=== PATIENT | female | born 1965 | race African-American/Black ===

== ENCOUNTER 2016-12-28 18:47 | Emergency (ER) | payer OTHER ==
[2016-12-28 19:12] VITALS: BP 154/80; PULSE 86; TEMP 98.1; BMI 29.5
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
[2016-12-28] MEDS ORDERED: diazePAM 2 MG TABLET PO ONE (20:15)
[2016-12-28] MEDS ORDERED: KETOROLAC TROMETHAMINE 30 MG/1 ML VIAL IM ONE (20:15)
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
[2016-12-28] MEDS ORDERED: diazePAM 2 MG TABLET ONE (20:36)
[2016-12-28] MEDS ORDERED: KETOROLAC TROMETHAMINE 30 MG/1 ML VIAL ONE (20:36)
== END 2016-12-28 22:00 | disposition home or self-care (01) ==
LOC: JERFT 18:47
PROC: 3E0233Z Introduction of Anti-inflammatory into Muscle, Percutaneous Approach (ICD-10-PCS; principal; 2016-12-28)
DX: M54.2 Cervicalgia (principal); V43.52XA Car driver injured in collision with other type car in traffic accident, initial encounter; Y93.89 Activity, other specified; Y92.410 Unspecified street and highway as the place of occurrence of the external cause; I10 Essential (primary) hypertension; D64.9 Anemia, unspecified; E78.00 Pure hypercholesterolemia, unspecified; F41.9 Anxiety disorder, unspecified
CPT/HCPCS: 72125-TC; 84703; 99281-25

== ENCOUNTER 2017-01-19 15:09 | Emergency (ER) | payer OTHER ==
[2017-01-19 15:21] VITALS: BP 153/91; PULSE 73; TEMP 97.3; BMI 29.5
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
[2017-01-19] MEDS ORDERED: diazePAM 2 MG TABLET ONE (16:31)
[2017-01-19] MEDS ORDERED: KETOROLAC TROMETHAMINE 60 MG/2 ML VIAL ONE (16:31)
[2017-01-19] MEDS: diazePAM 2 MG TABLET PO ONE (16:38)
[2017-01-19] MEDS: KETOROLAC TROMETHAMINE 60 MG/2 ML VIAL IM ONE (16:38)
== END 2017-01-19 18:33 | disposition home or self-care (01) ==
LOC: JERFT 15:09
PROC: 3E0233Z Introduction of Anti-inflammatory into Muscle, Percutaneous Approach (ICD-10-PCS; principal; 2017-01-19)
DX: M62.830 Muscle spasm of back (principal); M54.5 Low back pain; V43.52XA Car driver injured in collision with other type car in traffic accident, initial encounter; Y92.414 Local residential or business street as the place of occurrence of the external cause; Y93.89 Activity, other specified; Y99.8 Other external cause status; I10 Essential (primary) hypertension; E78.00 Pure hypercholesterolemia, unspecified; F41.9 Anxiety disorder, unspecified; Z87.442 Personal history of urinary calculi
CPT/HCPCS: 72131-TC; 99281-25

== ENCOUNTER 2017-02-15 05:04 | Day surgery (SDC) | payer OTHER ==
[2017-02-09 15:05] VITALS: BMI 29.5
--- NOTE | 2017-02-14 12:19 | HP ---
[facility] - Chief Complaint Chief Complaint: Heavy vaginal bleeding with the presence of fibroids and endometrial polyps. History of Present Illness: Pt has been experiencing heavy vaginal bleeding for months. A sonogram revealed the presence of fibroids in the uterus along with endometrial polyps. 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: Alzheimer's, CVA, Dementia, Migraine, Multiple Sclerosis, Peripheral Neuropathy, Parkinson's, Seizure, Syncope, TIA, Vertigo, Other Cardiovascular: No: AFIB, Aneurysm, Aortic Insufficiency, Aortic Stenosis, CAD, CHF, Deep Vein Thrombosis, HTN, Hyperlipdemia, WI, Mitral Insufficiency, Mitral Stenosis, Murmur, Pulmonary Hypertension, Other Pulmonary: No: Asthma, Bronchitis, Cancer, COPD, O2 Dependent, Pneumonia, Previously Intubated, Pulmonary Embolus, Pulmonary Fibrosis, Sleep Apnea, Other Gastrointestinal: Yes: GERD Hepatobiliary: No: Cirrhosis, Cholelithiasis, Cholecystitis, Choledocholithiasis , Hepatitis A, Hepatitis B, Hepatitis C, Other Renal/: No: Renal Failure, Renal Inusuff, BPH, Cancer, Hematuria, Hemodialysis , Neurogenic Bladder, Renal Calculi, UTI, Other Reproductive: Yes: Fibroids ...LMP: 01/14/17 ...: 3 ...Para: 3 Heme/Onc: No: Anemia, B12 Deficiency, Bleeding Disorder, Cancer, Current Chemotherapy, Current Radiation Therapy, Hemochromatosis, Hypercoaguable State, Myeloproliferative Synd, Sickle Cell Disease, Sickle Cell Trait, Thrombocytopenia, Other Infectious Disease: No: AIDS, C-Diff, Herpes Zoster, HIV, MRSA, STD's, Tuberculosis, VREF, Other Musculoskeletal: No: Bursitis, Chronic low back pain, Hemiparesis, Hemiplegia, Osteoarthritis, Paraplegia, Other Rheumatology: No: Fibromyalgia, Gout, Lupus, Rheumatoid Arthritis, Sarcoidosis, Vasculitis, Other ENT: No: Allergic Rhinitis, Sinusitis, Other Endocrine: No: Beaufort's Disease, Justino's Disease, Diabetes Insipidus, Diabetes Mellitus, Hyperparathyroidism, Hyperthyroidism, Hypothyroidism, Osteopenia, SIADH, Other Dermatology: No: Basal Cell, Cellulitis, Eczema, Melanoma, Psoriasis, Squamous Cell, Other - Current Medications Current Medications: Home Medications Medication Instructions Recorded Cyclobenzaprine HCl [Flexeril -] 10 mg PO TID PRN #21 tablet 02/21/16 Oxycodone HCl/Acetaminophen 1 - 2 tab PO Q6H #14 tab MDD 6 02/21/16 [Percocet 5-325 mg Tablet] Doxycycline Hyclate 100 mg PO DAILY 10/01/16 Metoprolol Succinate [Toprol Xl] 100 mg PO DAILY 10/01/16 Naproxen [Naprosyn -] 500 mg PO BID #14 tablet 12/28/16 Satellite Physical Exam - Physical Examination General Appearance: Well Nourished, Well Developed, Alert & Oriented x3 ENT: Clear, No Discharge, No masses Lung: Clear to auscultation Heart: Regular rate & rhythm, Normal S1, Normal S2 Breasts: Soft, Non-Tender, No masses bilaterally Abdomen: Soft, No tenderness, No CVA Extremities: No edema, No tenderness/swelling Pelvic Exam: Within normal limits External Genitalia, Within normal limits Vagina, Within normal limits Cervix, Within normal limits Uterus (fibroids), Within normal limits [facility]: Intact, Alert, Oriented Satellite Impression/Plan - Impression/Plan Impression: menorrhagia, endometrial polyp and fibroid uterus Operative Procedure: hysteroscopy with polypectomy and D/C Date to be Performed: 02/15/17
[2017-02-15] MEDS ORDERED: MIDAZOLAM HCL 2 MG/2 ML SINGLE DOSE VIAL ONE (08:32)
[2017-02-15] MEDS ORDERED: LIDOCAINE HCL/PF 2% SDV 5ML VIAL ONE (08:33)
[2017-02-15] MEDS ORDERED: ONDANSETRON 4 MG/2 ML VIAL ONE (08:34)
[2017-02-15] MEDS ORDERED: KETOROLAC TROMETHAMINE 30 MG/1 ML VIAL ONE (08:34)
[2017-02-15] MEDS ORDERED: DEXAMETHASONE SOD PHOSPHATE 4 MG/1 ML VIAL ONE (08:34)
[2017-02-15] MEDS ORDERED: ceFAZolin SODIUM 1 GM VIAL ONE (09:04)
[2017-02-15] MEDS ORDERED: ceFAZolin SODIUM 1 GM VIAL IVPB ONE (09:04)
[2017-02-15] MEDS ORDERED: oxyCODONE HCL 5 MG TABLET PO PRN (09:55)
[2017-02-15] MEDS ORDERED: ACETAMINOPHEN 1000 MG/100 ML VIAL (NON FORMULARY) IVPB ONE (09:55)
[2017-02-15] MEDS ORDERED: PROMETHAZINE HCL 25 MG/1 ML VIAL IVPUSH PRN (09:55)
[2017-02-15] MEDS ORDERED: LACTATED RINGERS SOLUTION 1,000 ML IV SCH (10:00)
--- NOTE | 2017-02-15 10:28 | OP ---
DATE OF OPERATION: 02/15/2017 PREOPERATIVE DIAGNOSES: Menorrhagia, endometrial polyps, fibroid uterus. POSTOPERATIVE DIAGNOSES: Menorrhagia, endometrial polyps, fibroid uterus. OPERATIVE PROCEDURE: Hysteroscopy, dilatation and curettage, polypectomy. SURGEON: Yo Guillaume MD ANESTHESIA: MAC given by anesthesiologist. ESTIMATED BLOOD LOSS: 15 mL. The patient was brought to the operating room. Placed in the supine position. Given Ancef antibiotic prophylactically. Placed in a lithotomy position. The patient was examined. The uterus was noted to be anteverted, slightly enlarged. Adnexae negative. The anterior lip of the cervix was grasped with a tenaculum after the vagina was prepped and draped in the usual manner with Betadine. The uterus was sounded to 10 cm. The cervix was then dilated with Velez dilators. A hysteroscopy was performed. The patient was noted to have polypoid-appearing tissue in the fundal area of the uterus and old clots were also noted. A polypectomy was done. D & C was done. Tissue was abundant. There was lots of tissue that came out of the uterus along with old blood clots. The tissue may resemble myomatous tissue as well as endometrial polypoid tissue. The tissue was sent to Pathology for analysis. The hemostasis was good. The estimated blood loss was 15 mL. The patient tolerated procedure well. The speculum and the tenaculum were removed and the patient was transferred to the recovery room with stable vital signs and good hemostasis. YO GUILLAUME M.D. [id number]
[2017-02-15 10:53] VITALS: TEMP 98.2
[2017-02-15 17:21] VITALS: BP 120/78; PULSE 70
--- NOTE | 2017-02-16 12:52 | PATH ---
Surgical Pathology Report Patient Name: LATRICE LIVE [facility]. Rec. #: [id number] /Age/Gender: 1965 (Age: 51) / F Account: [id number] Location: [facility] SURGICAL Taken: 02/15/2017 Received: 02/15/2017 Reported: 02/16/2017 Physicians: Jim Guillaume M.D. Specimen(s) Received A: ENDOMETRIAL POLYPOPID TISSUE B: ENDOMETRIAL CURETTINGS Clinical History Perimenopausal menorrhagia, endometrial polyp, fibroids Final Diagnosis A. ENDOMETRIAL POLYPOID/MYOMATOUS TISSUE, POLYPECTOMY: FRAGMENTS OF ENDOMETRIAL POLYP WITH FOCAL STROMAL BREAKDOWN CHANGES. FRAGMENTS OF BENIGN SMOOTH MUSCLE WITH INTERVENING ENDOMETRIUM SUGGESTIVE OF ADENOMYOMA. SMALL FRAGMENTS OF BENIGN ENDOCERVICAL TISSUE. B. ENDOMETRIUM, CURETTAGE: FRAGMENTS OF ENDOMETRIAL POLYP. FRAGMENTS OF INACTIVE ENDOMETRIUM WITH STROMAL BREAKDOWN CHANGES. FRAGMENTS OF BENIGN SMOOTH MUSCLE WITH INTERVENING ENDOMETRIUM SUGGESTIVE OF ADENOMYOMA. FRAGMENTS OF BENIGN ENDOCERVICAL TISSUE. FRAGMENTS OF BENIGN SQUAMOUS EPITHELIUM. Electronically Signed Choco Rangel M.D. Gross Description A. Received in formalin labeled "endometrial polypoid tissue, possible myomatous tissue" is a 3.8 x 3.1 x 0.4 cm aggregate of fraga soft tissue fragments. The formalin is filtered and the specimen is entirely submitted in 2 cassettes. B. Received in formalin labeled "endometrial curettings" is a 6.4 x 6.0 x 0.8 cm aggregate of red-brown soft tissue fragments admixed with blood clot. The formalin is filtered and the specimen is entirely submitted in 8 cassettes. /02/15/2017 saudi02/15/2017
== END 2017-02-15 13:15 | disposition home or self-care (01) ==
LOC: JASU-SURG 05:04
PROVIDERS: ATTEND Obstetrics & Gynecology
PROC: 0UB98ZX Excision of Uterus, Via Natural or Artificial Opening Endoscopic, Diagnostic (ICD-10-PCS; principal; 2017-02-15 08:30)
PROC: 0UDB8ZX Extraction of Endometrium, Via Natural or Artificial Opening Endoscopic, Diagnostic (ICD-10-PCS; 2017-02-15 08:30)
DX: N92.0 Excessive and frequent menstruation with regular cycle (principal); N84.0 Polyp of corpus uteri; D25.9 Leiomyoma of uterus, unspecified
CPT/HCPCS: 84703; 88305-TC; 94760

== ENCOUNTER 2017-04-24 17:37 | Emergency (ER) | payer OTHER ==
[2017-04-24 17:46] VITALS: BP 164/96; PULSE 86; TEMP 97.9; BMI 29.5
[2017-04-24] MEDS ORDERED: diazePAM 5 MG TABLET PO ONE (18:55)
[2017-04-24] MEDS ORDERED: KETOROLAC TROMETHAMINE 30 MG/1 ML VIAL IM ONE (18:55)
[2017-04-24] MEDS ORDERED: diazePAM 5 MG TABLET ONE (18:58)
[2017-04-24] MEDS ORDERED: KETOROLAC TROMETHAMINE 30 MG/1 ML VIAL ONE (18:58)
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
[2017-04-24 19:51] LABS: URINE APPEARANCE CLEAR; URINE BILIRUBIN NEGATIVE (NEGATIVE); URINE COLOR STRAW; URINE GLUCOSE (UA) NEGATIVE (NEGATIVE); URINE KETONE NEGATIVE (NEGATIVE); URINE NITRITE NEGATIVE (NEGATIVE); URINE PROTEIN NEGATIVE (NEGATIVE); URINE UROBILINOGEN NEGATIVE mg/dL (0.2-1.0)
[2017-04-24 20:09] LABS: URINE BLOOD 1+ (NEGATIVE); URINE LEUK ESTERASE 3+ (NEGATIVE)
[2017-04-24 20:11] LABS: URINE MUCUS RARE; URINE RBC 13 /hpf (0-3); URINE WBC 29 /hpf (3-5)
== END 2017-04-24 20:18 | disposition home or self-care (01) ==
LOC: JERFT 17:37
PROC: 3E0233Z Introduction of Anti-inflammatory into Muscle, Percutaneous Approach (ICD-10-PCS; principal; 2017-04-24)
DX: M62.830 Muscle spasm of back (principal); I10 Essential (primary) hypertension; E78.00 Pure hypercholesterolemia, unspecified; F41.9 Anxiety disorder, unspecified
CPT/HCPCS: 81003; 81015; 96372; 99281-25

== ENCOUNTER 2017-08-26 17:01 | Emergency (ER) | payer OTHER ==
--- NOTE | 2017-08-26 17:06 | PDOC ---
History of Present Illness - General History Source: Patient Exam Limitations: No Limitations - History of Present Illness Initial Comments: 08/26/17 17:26 The patient is a 52 year old female brought via EMS and is presenting with her daughter, with a significant past medical history of chronic back pain, anemia, kidney stones, HTN, HLD and anxiety who presents to the emergency department with chest pain since this morning. She reports that she awoke having this pain and decided to take an oxycodone which helped relieve the pain. She states that she then went out shopping and lifted a heavy object causing right chest pain, which she rates a 6/10 in severity, she notes that the pain radiates to the back and is exacerbated with certain movements. She denies any recent fall or any kind of trauma. The patient denies shortness of breath, headache and dizziness. Family History: Diabetes, HTN Allergies: None Past surgical history: Right knee surgery (x5) Social history: No alcohol, tobacco or drug use reported <Edu Clifford - Last Filed: 08/26/17 17:27> <Susanna Doherty - Last Filed: 08/26/17 22:27> - General Chief Complaint: Chest Pain Stated Complaint: CHEST PAIN Time Seen by Provider: 08/26/17 17:06 Past History <Edu Clifford - Last Filed: 08/26/17 17:27> - Past Medical History Anemia: Yes Disorders: Yes (H/O STONES) HTN: Yes Hypercholesterolemia: Yes Kidney Stones: Yes Psychiatric Problems: Yes (ANXIETY) - Surgical History Orthopedic Surgery: Yes (RIGHT TKR) - Immunization History Immunization Up to Date: Yes - Suicide/Smoking/Psychosocial Hx Smoking Status: No Smoking History: Never smoked Have you smoked in the past 12 months: No Number of Cigarettes Smoked Daily: 0 Cigars Per Day: 0 Hx Alcohol Use: No Drug/Substance Use Hx: No Substance Use Type: None <Susanna Doherty - Last Filed: 08/26/17 22:27> - Past Medical History Allergies/Adverse Reactions: Allergies Allergy/AdvReac Type Severity Reaction Status Date / Time No Known Allergies Allergy Verified 08/26/17 17:20 Home Medications: Ambulatory Orders Cyclobenzaprine HCl [Flexeril -] 10 mg PO TID PRN #21 tablet 02/21/16 Oxycodone HCl/Acetaminophen [Percocet 5-325 mg Tablet] 1 - 2 tab PO Q6H #14 tab MDD 6 02/21/16 Doxycycline Hyclate 100 mg PO DAILY 10/01/16 Metoprolol Succinate [Toprol Xl] 100 mg PO DAILY 10/01/16 Review of Systems - Review of Systems Able to Perform ROS?: Yes Comments:: 08/26/17 17:26 GENERAL/CONSTITUTIONAL: No fever or chills. No weakness. HEAD, EYES, EARS, NOSE AND THROAT: No change in vision. No ear pain or discharge. No sore throat.- CARDIOVASCULAR: (+) Chest pain. No shortness of breath RESPIRATORY: No cough, wheezing, or hemoptysis. GASTROINTESTINAL: No nausea, vomiting, diarrhea or constipation. GENITOURINARY: No dysuria, frequency, or change in urination. MUSCULOSKELETAL: (+) Back pain. No joint or muscle swelling or pain. No neck pain. SKIN: No rash NEUROLOGIC: No headache, vertigo, loss of consciousness, or change in strength/ sensation. ENDOCRINE: No increased thirst. No abnormal weight change HEMATOLOGIC/LYMPHATIC: No anemia, easy bleeding, or history of blood clots. ALLERGIC/IMMUNOLOGIC: No hives or skin allergy. <Edu Clifford - Last Filed: 08/26/17 17:27> *Physical Exam - Vital Signs Last Vital Signs Temp Pulse Resp BP Pulse Ox 98.9 F 103 H 16 150/96 100 08/26/17 17:05 08/26/17 17:05 08/26/17 17:05 08/26/17 17:05 08/26/17 17:05 - Physical Exam Comments: 08/26/17 17:27 GENERAL: Awake, alert, and fully oriented, in no acute distress HEAD: No signs of trauma, normocephalic, atraumatic EYES: PERRLA, EOMI, sclera anicteric, conjunctiva clear ENT: Auricles normal inspection, hearing grossly normal, nares patent, oropharynx clear without exudates. Moist mucosa NECK: Normal ROM, supple, no lymphadenopathy, JVD, or masses LUNGS: No distress, speaks full sentences, clear to auscultation bilaterally HEART: Regular rate and rhythm, normal S1 and S2, no murmurs, rubs or gallops, peripheral pulses normal and equal bilaterally. ABDOMEN: Soft, nontender, normoactive bowel sounds. No guarding, no rebound. No masses EXTREMITIES : Normal inspection, Normal range of motion, no edema. No clubbing or cyanosis. NEUROLOGICAL: Cranial nerves II through XII grossly intact. Normal speech, normal gait, no focal sensorimotor deficits SKIN: Warm, Dry, normal turgor, no rashes or lesions noted. <Edu Clifford - Last Filed: 08/26/17 17:27> ED Treatment Course - LABORATORY CBC & Chemistry Diagram: 08/26/17 21:43 08/26/17 17:50 <Susanna Doherty - Last Filed: 08/26/17 22:27> Medical Decision Making - Medical Decision Making 08/26/17 19:58 Pt presents to the ED complaining of chest pain that is worse with twisting movements of the torso and movement of the arm. No shortness of breath. Well apeearing in the ED. EKG shows no evidence ischemia and first set of cardiac enzymes are negative. Will check second set of cardiac enzymes, likely discharge home if negative. <Susanna Doherty - Last Filed: 08/26/17 22:27> *DC/Admit/Observation/Transfer - Attestations Scribe Attestion: 08/26/17 17:26 Documentation prepared by Edu Clifford, acting as medical billing representative for Susanna Doherty MD <Edu Clifford - Last Filed: 08/26/17 17:27> - Discharge Dispostion Admit: No <Susanna Doherty - Last Filed: 08/26/17 22:27> Diagnosis at time of Disposition: Chest pain Qualifiers: Chest pain type: precordial pain Qualified Code(s): R07.2 - Precordial pain - Discharge Dispostion Disposition: HOME Condition at time of disposition: Good - Referrals Referrals: Sumeet Street MD [Primary Care Provider] - - Patient Instructions Printed Discharge Instructions: DI for Chest Pain Additional Instructions: Return to the ED for severe pain, especially chest pain with nausea, vomiting or shortness of breath. You can take over the counter motrin or tylenol for the pain. Make sure that you call your primary care doctor for another appointment on Monday.
[2017-08-26 17:29] VITALS: TEMP 98.9; BMI 29.5
[2017-08-26 17:59] LABS: BASOPHIL 0.4 % (0-2.0); EOSINOPHIL 0.3 % (0-4.5); MCH 20.3 pg (25.7-33.7); MCHC 30.6 g/dl (32.0-36.0); MEAN CELL VOLUME 66.3 fl (80-96); MEAN PLT VOLUME 7.2 fl (7.5-11.1); NEUTROPHILS 85.9 % (42.8-82.8); PLATELET COUNT 471 K/MM3 (134-434); RDW 18.5 % (11.6-15.6); WHITE BLOOD COUNT 11.4 K/mm3 (4.0-10.0)
[2017-08-26] MEDS ORDERED: KETOROLAC TROMETHAMINE 30 MG/1 ML VIAL IVPUSH ONE (18:06)
[2017-08-26] MEDS ORDERED: KETOROLAC TROMETHAMINE 30 MG/1 ML VIAL ONE (18:18)
[2017-08-26 18:31] LABS: ALBUMIN 3.5 g/dl (3.4-5.0); ANION GAP 9 (8-16); BILIRUBIN,TOTAL 0.5 mg/dL (0.2-1.0); CALCIUM 8.6 mg/dL (8.5-10.1); CO2 26 mmol/L (21-32); CREATININE 1.1 mg/dL (0.55-1.02); GLUCOSE,RANDOM 113 mg/dL (74-106); SGOT/AST 6 U/L (15-37); SGPT/ALT 13 U/L (12-78); TOT PROT 7.6 g/dl (6.4-8.2)
[2017-08-26 18:34] LABS: ALK PHOS 80 U/L (45-117); CPK 80 IU/L (26-192); TROPONIN I < 0.02 ng/ml (0.00-0.05)
[2017-08-26 19:38] LABS: MACROCYTOSIS 1+; MICROCYTOSIS 1+
[2017-08-26 21:52] LABS: BASOPHIL 0.4 % (0-2.0); EOSINOPHIL 0.3 % (0-4.5); MCHC 31.7 g/dl (32.0-36.0); MEAN CELL VOLUME 66.2 fl (80-96); MEAN PLT VOLUME 7.6 fl (7.5-11.1); NEUTROPHILS 83.7 % (42.8-82.8); PLATELET COUNT 446 K/MM3 (134-434); RDW 18.8 % (11.6-15.6); WHITE BLOOD COUNT 10.5 K/mm3 (4.0-10.0)
[2017-08-26 22:06] VITALS: BP 103/63; PULSE 80
[2017-08-26 22:20] LABS: CPK 74 IU/L (26-192); TROPONIN I < 0.02 ng/ml (0.00-0.05)
--- NOTE | 2017-08-28 09:52 | EKG ---
Test Reason : Blood Pressure : / mmHG Vent. Rate : 105 BPM Atrial Rate : 105 BPM P-R Int : 172 ms QRS Dur : 072 ms QT Int : 312 ms P-R-T Axes : 060 -03 038 degrees QTc Int : 412 ms SINUS TACHYCARDIA LOW VOLTAGE QRS NONSPECIFIC T WAVE ABNORMALITY ABNORMAL ECG WHEN COMPARED WITH ECG OF 09-FEB-2017 13:30, NONSPECIFIC T WAVE ABNORMALITY NOW EVIDENT IN LATERAL LEADS Confirmed by NAEEM WOOD, MARIZOL ([id number]) on 08/28/2017 9:51:48 AM Referred By: Confirmed By:MARIZOL HARTLEY MD
--- NOTE | 2017-08-28 09:53 | EKG ---
Test Reason : Blood Pressure : / mmHG Vent. Rate : 084 BPM Atrial Rate : 084 BPM P-R Int : 178 ms QRS Dur : 078 ms QT Int : 348 ms P-R-T Axes : 052 -08 006 degrees QTc Int : 411 ms NORMAL SINUS RHYTHM NONSPECIFIC T WAVE ABNORMALITY ABNORMAL ECG WHEN COMPARED WITH ECG OF 26-AUG-2017 17:05, NO SIGNIFICANT CHANGE WAS FOUND Confirmed by MARIZOL HARTLEY MD ([id number]) on 08/28/2017 9:53:26 AM Referred By: Confirmed By:MARIZOL HARTLEY MD
== END 2017-08-26 22:38 | disposition home or self-care (01) ==
LOC: JER 17:01
PROC: 3E0333Z Introduction of Anti-inflammatory into Peripheral Vein, Percutaneous Approach (ICD-10-PCS; principal; 2017-08-26)
DX: R07.2 Precordial pain (principal); I10 Essential (primary) hypertension; E78.00 Pure hypercholesterolemia, unspecified; F41.9 Anxiety disorder, unspecified; Z87.442 Personal history of urinary calculi; Z96.651 Presence of right artificial knee joint
CPT/HCPCS: 36415; 71010-TC; 80053; 82550; 84484; 85025; 93005; 93010; 96374; 99285-25

== ENCOUNTER 2017-10-07 12:20 | Inpatient (IN) | payer OTHER ==
[2017-10-07 12:39] VITALS: BMI 29.5
--- NOTE | 2017-10-07 12:57 | PDOC ---
Attending Attestation - Resident Resident Name: Benjamin Mejia - HPI HPI: 10/07/17 14:13 Pt presents to the ED complaining of a one day history of L sided abdominal pain without associated symptoms. - Physicial Exam PE: 10/07/17 14:19 Agree with resident exam. Patient is diffusely tender in her left abdomen without guarding or rebound. - Medical Decision Making 10/07/17 14:23 Pt presents to the ED complaining of abdominal pain without associated symptoms. Pain is most consistent with muscular pain, but since her abdomen is tender, will check CT abdomen to rule out intraabdominal pathology such as diverticulitis.
[2017-10-07] MEDS ORDERED: SODIUM CHLORIDE 1,000 ML IV STA (13:07)
[2017-10-07] MEDS ORDERED: KETOROLAC TROMETHAMINE 30 MG/1 ML VIAL IVPUSH ONE (13:07)
--- NOTE | 2017-10-07 13:17 | PDOC ---
History of Present Illness <Rosalina Bird - Last Filed: 10/07/17 17:14> - General History Source: Patient Exam Limitations: No Limitations - History of Present Illness Initial Comments: 10/07/17 13:11 Patient is a 52F with history of kidney stones (CT in 06/25 showed bilateral kidney stones), 4 knee replacements complicated by mrsa infection, and HTN here today complaining of LLQ pain of sudden onset this morning. She states that this feels like one of her prior kidney stones. Endorses chills and nausea. Denies fevers, chills, chest pain, shortness of breath. Pain is made worse with movement. No pain with urination, diarrhea or constipation. <Benjamin Mejia - Last Filed: 10/07/17 17:36> - General Chief Complaint: Pain Stated Complaint: LT SIDE/ ABD PAIN Time Seen by Provider: 10/07/17 12:53 Past History <Rosalina Bird - Last Filed: 10/07/17 17:14> - Past Medical History Anemia: Yes COPD: No Disorders: Yes (H/O STONES) HTN: Yes Hypercholesterolemia: Yes Kidney Stones: Yes Psychiatric Problems: Yes (ANXIETY) - Surgical History Orthopedic Surgery: Yes (RIGHT TKR) - Immunization History Immunization Up to Date: Yes - Suicide/Smoking/Psychosocial Hx Smoking Status: No Smoking History: Never smoked Have you smoked in the past 12 months: No Number of Cigarettes Smoked Daily: 0 Cigars Per Day: 0 Hx Alcohol Use: No Drug/Substance Use Hx: No Substance Use Type: None <Benjamin Mejia - Last Filed: 10/07/17 17:36> - Past Medical History Allergies/Adverse Reactions: Allergies Allergy/AdvReac Type Severity Reaction Status Date / Time No Known Allergies Allergy Verified 10/07/17 12:39 Home Medications: Ambulatory Orders Cyclobenzaprine HCl [Flexeril -] 10 mg PO TID PRN #21 tablet 02/21/16 Oxycodone HCl/Acetaminophen [Percocet 5-325 mg Tablet] 1 - 2 tab PO Q6H #14 tab MDD 6 02/21/16 Doxycycline Hyclate 100 mg PO DAILY 10/01/16 Metoprolol Succinate [Toprol Xl] 100 mg PO DAILY 10/01/16 Review of Systems - Review of Systems Comments:: 10/07/17 13:17 GENERAL/CONSTITUTIONAL: No fever. Positive for chills. HEAD, EYES, EARS, NOSE AND THROAT: No change in vision. No sore throat. CARDIOVASCULAR: No chest pain or shortness of breath RESPIRATORY: No cough, wheezing, or hemoptysis. GASTROINTESTINAL: Positive for nausea. Negative for vomiting, diarrhea or constipation. GENITOURINARY: No dysuria, frequency, or change in urination. SKIN: No rash NEUROLOGIC: No headache, vertigo, loss of consciousness, or change in strength/ sensation. ENDOCRINE: No increased thirst. No abnormal weight change ALLERGIC/IMMUNOLOGIC: No hives or skin allergy. <Benjamin Mejia - Last Filed: 10/07/17 17:36> *Physical Exam - Vital Signs Last Vital Signs Temp Pulse Resp BP Pulse Ox 98.3 F 76 20 152/95 100 10/07/17 12:35 10/07/17 12:35 10/07/17 12:35 10/07/17 12:35 10/07/17 12:35 <Rosalina Bird - Last Filed: 10/07/17 17:14> - Vital Signs Last Vital Signs Temp Pulse Resp BP Pulse Ox 98.3 F 76 20 152/95 100 10/07/17 12:35 10/07/17 12:35 10/07/17 12:35 10/07/17 12:35 10/07/17 12:35 - Physical Exam Comments: 10/07/17 13:21 GENERAL: Awake, alert, and fully oriented, in moderate distress, moving in bed HEAD: No signs of trauma, normocephalic, atraumatic EYES: PERRLA, EOMI, sclera anicteric, conjunctiva clear ENT: Auricles normal inspection, hearing grossly normal, nares patent, oropharynx clear without exudates. Moist mucosa LUNGS: No distress, speaks full sentences, clear to auscultation bilaterally HEART: Regular rate and rhythm, normal S1 and S2, no murmurs, rubs or gallops, peripheral pulses normal and equal bilaterally. ABDOMEN: Tender in LLQ, but distractable. No CVA tenderness. Normoactive bowel sounds. EXTREMITIES: Normal inspection, Normal range of motion, no edema. No clubbing or cyanosis. NEUROLOGICAL: Cranial nerves II through XII grossly intact. Normal speech, no focal sensorimotor deficits <OkBenjamin jones - Last Filed: 10/07/17 17:36> ED Treatment Course - LABORATORY CBC & Chemistry Diagram: 10/07/17 13:00 10/07/17 13:32 - ADDITIONAL ORDERS Additional order review: Laboratory Results 10/07/17 10/07/17 15:00 13:32 Sodium 140 Potassium 4.4 Chloride 107 Carbon Dioxide 26 Anion Gap 7 L BUN 12 D Creatinine 1.0 Creat Clearance w eGFR 58.45 Random Glucose 88 D Calcium 8.4 L Total Bilirubin 0.4 AST 9 L D ALT 14 Alkaline Phosphatase 92 Total Protein 7.4 Albumin 3.4 Lipase 78 Urine Color Ltyellow Urine Appearance Slcloudy Urine pH 6.0 Ur Specific [place] 1.009 Urine Protein Negative Urine Glucose (UA) Negative Urine Ketones Negative Urine Blood 1+ H Urine Nitrite Negative Urine Bilirubin Negative Urine Urobilinogen Negative Urine WBC (Auto) 35 Urine RBC (Auto) 2 Ur Epithelial Cells Rare Urine Mucus Rare 10/07/17 13:00 RBC 4.46 MCV 66.5 L MCHC 30.2 L RDW 18.4 H MPV 7.8 Neutrophils % 79.9 Lymphocytes % 10.4 Monocytes % 7.1 Eosinophils % 1.8 D Basophils % 0.8 - Medications Given in the ED: ED Medications Discontinued Medications Generic Name Dose Route Start Last Admin Trade Name Rissa PRN Reason Stop Dose Admin Sodium Chloride 1,000 mls @ 1,000 mls/hr 10/07/17 13:07 10/07/17 13:30 Normal Saline - IV 10/07/17 14:06 1,000 mls/hr ASDIR STA Administration Ceftriaxone Sodium 2 gm/ 100 mls @ 200 mls/hr 10/07/17 16:38 10/07/17 16:54 Dextrose IVPB 10/07/17 17:07 200 mls/hr ONCE ONE Administration Ketorolac Tromethamine 30 mg 10/07/17 13:07 10/07/17 13:30 Toradol Injection - IVPUSH 10/07/17 13:08 30 mg ONCE ONE Administration Ondansetron HCl 4 mg 10/07/17 13:59 10/07/17 14:03 Zofran Injection IVPUSH 10/07/17 14:00 4 mg ONCE ONE Administration Oxycodone/Acetaminophen 1 combo 10/07/17 15:21 10/07/17 15:24 Percocet 5/325 - PO 10/07/17 15:22 1 combo ONCE ONE Administration <Rosalina Bird - Last Filed: 10/07/17 17:14> - LABORATORY CBC & Chemistry Diagram: 10/07/17 13:00 10/07/17 13:32 - RADIOLOGY Radiology Studies Ordered: Category Date Time Status KIDNEY / RENAL US [US] Stat Ultrasound 10/07/17 13:08 Ordered <Benjamin Mejia - Last Filed: 10/07/17 17:36> Medical Decision Making - Medical Decision Making 10/07/17 4:34pm Call placed to Dr. Wade Leyva's mailbox (doctor does not have a formal answering service), covering physician for Dr. Jahaira Garcia, awaiting call back. 5:04pm Second call placed to Dr. Wade Leyva's answering service. Dr. Leyva's mailbox was filled and service transferred mailbox was also filled. 5:11pm Call placed to Dr. Wall, case was discussed. 5:17pm Microblog to inpatient Medsurg admission to the hospital was made. <Rosalina Bird - Last Filed: 10/07/17 17:14> - Medical Decision Making 10/07/17 13:26 52F with history of kidney stones, knee replacements complicated by infection and HTN here today with abdominal pain. Vital signs stable and normal. CT in june confirmed kidney stones, will use ultrasound to evaluate for possible hydronephrosis. Will evaluate further with cbc, cmp, lipase, ua. Will treat with fluids and toradol. 10/07/17 15:30 Laboratory Tests 10/07/17 10/07/17 10/07/17 13:00 13:32 15:00 WBC 7.0 D Hgb 9.0 L Hct 29.7 L Plt Count 416 BUN 12 D Creatinine 1.0 Urine Blood 1+ H Urine Nitrite Negative Urine WBC (Auto) 35 Urine RBC (Auto) 2 CBC shows anemia, at baseline. Kidney function normal. UA shows blood, nitrite negative, 35 wbcs, 2 rbcs. 10/07/17 15:31 Ultrasound shows mild left sided hydronephrosis, bilateral kidney stones. Distal obstruction cannot be excluded. Will evaluate further with spiral CT. Percocet given for pain control. 12/30/17 16:44 CT shows 9mm left UVJ calculase with mild to moderate hydronephrosis, partially obsructing. Will treat with ceftriaxone 2g. Patient reports PCP is Jahaira Garcia, but has never seen patient. Will admit and consult urology. Patient's urologist is Dr Daniel Reynoso. 10/07/17 17:27 Urine culture added. Sample taken before ceftriaxone dose. 10/07/17 17:34 Dr Winn accepted admission to med/surg under Zainah. <Benjamin Mejia - Last Filed: 10/07/17 17:36> *DC/Admit/Observation/Transfer - Attestations Scribe Attestion: 10/07/17 17:18 Documentation prepared by Rosalina Bird, acting as medical dir for Susanna Doherty MD. <Rosalina Bird - Last Filed: 10/07/17 17:14> - Discharge Dispostion Admit: Yes <Benjamin Mejia - Last Filed: 10/07/17 17:36> Diagnosis at time of Disposition: Kidney stone - Discharge Dispostion Condition at time of disposition: Stable - Referrals Referrals: Jahaira Garcia MD [Primary Care Provider] - - Patient Instructions - Post Discharge Activity
[2017-10-07] MEDS ORDERED: KETOROLAC TROMETHAMINE 30 MG/1 ML VIAL ONE ×2 (13:25→18:53)
[2017-10-07] MEDS ORDERED: ONDANSETRON 4 MG/2 ML VIAL IVPUSH ONE (13:59)
[2017-10-07] MEDS ORDERED: ONDANSETRON 4 MG/2 ML VIAL ONE (14:00)
[2017-10-07 14:01] LABS: BASO % 0.8 % (0-2.0); EOS % 1.8 % (0-4.5); HEMATOCRIT 29.7 % (32.4-45.2); LYMPH % 10.4 % (8-40); MCH 20.1 pg (25.7-33.7); MCHC 30.2 g/dl (32.0-36.0); MEAN CELL VOLUME 66.5 fl (80-96); MEAN PLT VOLUME 7.8 fl (7.5-11.1); MONO % 7.1 % (3.8-10.2); NEUT % 79.9 % (42.8-82.8); PLATELET COUNT 416 K/MM3 (134-434); RBC 4.46 M/mm3 (3.60-5.2); RDW 18.4 % (11.6-15.6)
[2017-10-07 14:08] LABS: ADD RBC MORPHOLOGY YES
[2017-10-07 14:35] LABS: ALBUMIN 3.4 g/dl (3.4-5.0); ANION GAP 7 (8-16); BILIRUBIN,TOTAL 0.4 mg/dL (0.2-1.0); BLOOD UREA NITROGEN 12 mg/dL (7-18); CALCIUM 8.4 mg/dL (8.5-10.1); CHLORIDE 107 mmol/L (98-107); CO2 26 mmol/L (21-32); GLUCOSE,RANDOM 88 mg/dL (74-106); LIPASE 78 U/L (73-393); POTASSIUM 4.4 mmol/L (3.5-5.1); SGOT/AST 9 U/L (15-37); SGPT/ALT 14 U/L (12-78); SODIUM 140 mmol/L (136-145); TOT PROT 7.4 g/dl (6.4-8.2)
[2017-10-07 14:36] LABS: ALK PHOS 92 U/L (45-117)
[2017-10-07 15:17] LABS: URINE APPEARANCE SLCLOUDY; URINE BILIRUBIN NEGATIVE (NEGATIVE); URINE BLOOD 1+ (NEGATIVE); URINE COLOR LTYELLOW; URINE GLUCOSE (UA) NEGATIVE (NEGATIVE); URINE KETONE NEGATIVE (NEGATIVE); URINE NITRITE NEGATIVE (NEGATIVE); URINE PROTEIN NEGATIVE (NEGATIVE); URINE UROBILINOGEN NEGATIVE mg/dL (0.2-1.0)
[2017-10-07 15:21] LABS: URINE LEUK ESTERASE 3+ (NEGATIVE)
[2017-10-07 15:25] LABS: EPI CELLS RARE /HPF (FEW); URINE MUCUS RARE
[2017-10-07] MEDS ORDERED: CEFTRIAXONE 2 GM in DEXTROSE 5%-WATER - 100 ML IVPB ONE (16:38)
[2017-10-07 16:41] LABS: ANISOCYTOSIS 2+
[2017-10-07] MEDS ORDERED: CEFTRIAXONE 2 GM/100 ML BAG IVPB ONE (16:45)
[2017-10-07 17:47] LABS: INR 1.12 (0.82-1.09); PROTHROMBIN TIME (PATIENT) 12.6 SEC (9.98-11.88)
--- NOTE | 2017-10-07 18:10 | PN ---
Teaching Attending Note Name of Resident: Bong Izaguirre ATTENDING PHYSICIAN STATEMENT I saw and evaluated the patient. I reviewed the resident's note and discussed the case with the resident. I agree with the resident's findings and plan as documented. SUBJECTIVE: CC: pain in L flank HPI: 52 y/o lady with h/o DM , HTN, R knee replacement complicated by MRSA infection who presented with L flank pain that started last night. she has been feeling bloated x 2 weeks, but pain started last night . she also reports heaviness in suprapubic area x 2 days . no dysuria , no hematuria. she denies fever or chills, but feels nauseous . No vomiting. she had a CT of abd /pelvis in 06/25 which showed b/l nephrolithiasis. she saw her urologist Dr. Nichols , a month ago and she reports having Urine infection then. no treatment was given per her as she was on Doxy. she reports previous ureteral stent placements but s/p removal. denies diarrhea or constipation. In ER: UA showed pyuria , and CT scan showed partially obstructing UVJ stone with L hydro . ceftriaxone, IVF and Pain meds were given OBJECTIVE: NAD, AAox3 . HEENT: EOMI, round equal pupils reactive to light. MMM, no facial droop. Nl oropharynx, no exudate . Cv: RRR, no MRG, minimal distention of neck vessels lungs : CTAB Ext: NO edema . R anterior well healed knee scar. DP 2+ b/l . no signs of fungal infection. Abd: soft, ND , NL BS , TTP in suprapubic area, LLQ, LUQ. No rebound tenderness or guarding. L CVA tenderness Neuro : EOMI, round equal pupils , reactive to light , no facial droop, strength 5/5 in upper and lower extremities proximally and distally, reflexes 2 + L knee jerk and b/l Biceps . R knee jerk absent due to knee surgeries . ASSESSMENT AND PLAN: 52 y/o lady with h/o DM, HTN, R knee replacement complicated by MRSA infection who presented with L flank pain , She was found to have partially obstructing L UVJ stone with signs of UTI . 1- Partially obstructing L UVJ stone with L hydronephrosis and signs of UTI . No signs of Systemic infection/SIRS - IVF NS at 100 /hr - pain control with toradol 30 q 8 hr - cont percocet BID to avoid withdrawal - strain all urines - will call urology Dr. renee - previous urine cx with E coli sensitive to seftriaxone . cont cetriaxone given in ER - follow urine cx 2- HTN: cont metoprolol . will confirm dose with pharmacy as pt does not remember 3- Chronic back pain, cont percocet BID 4- Reviewing last CT scan in 06/25 , a 2.5 cm R hepatic lobe lesion was found. - this will need to be followed as out pt , with MRI or triple phase CT. will inform pt of this 5- Microcytic anemia : likely iron def due to uterine fibroids and menorrhagia - check iron studies - start iron supp empirically 6- DM : pt reports being pre-diabetic , but her A1c in 2015 was 6.6. - SSI while here - repeat A1c. 7- DVT PX with heparin, will start it after speaking with urology, in case a procedure is planned .
[2017-10-07] MEDS ORDERED: CYCLOBENZAPRINE HCL 10 MG TABLET (FP) PO PRN (18:43)
[2017-10-07] MEDS ORDERED: HEPARIN NA (PORCINE) 5,000 UNITS/ML 1ML VIAL SQ SCH (18:45)
[2017-10-07] MEDS ORDERED: KETOROLAC TROMETHAMINE 15 MG/ML VIAL IVPUSH SCH ×2 (18:45→19:00)
[2017-10-07] MEDS ORDERED: INSULIN SLIDING SCALE (NOVOLOG) 1 VIAL SQ SCH (18:45)
[2017-10-07] MEDS ORDERED: HEPARIN NA (PORCINE) 5,000 UNITS/ML 1ML VIAL ONE (18:53)
[2017-10-07] MEDS ORDERED: PROMETHAZINE HCL 25 MG/1 ML VIAL IVPUSH PRN (18:56)
[2017-10-07] MEDS ORDERED: TAMSULOSIN HCL 0.4 MG CAP.ER.24H (FP) PO ONE (18:58)
[2017-10-07] MEDS ORDERED: TAMSULOSIN HCL 0.4 MG CAP.ER.24H (FP) ONE (19:14)
--- NOTE | 2017-10-07 19:35 | HP ---
CHIEF COMPLAINT: abdominal and back pain x 1 day PCP: HISTORY OF PRESENT ILLNESS: 52F w/ hx of recurrent nephrolithiasis, HTN, DM, anemia, fibroids, chronic back pain, right knee replacement x 4 complicated by MRSA infection requiring chronic antibiotic prophylaxis presenting with 1 day of abdominal and back pain. Pt states that the pain is left sided, 10/10, radiating from back to front , and sharp in nature. She states that it is accompanied by chills, mild nausea , and suprapubic pressure upon urination. She states the pain is similar to her previous kidney stones. She states that she has had multiple episodes of kidney stones in the past requiring ureter stents and lithotripsy. She usually presents to [facility], and she sees a urologist. She states that for the past few months, she has had decreased appetite and abdominal rigidity, to which her urologist attributes to her chronic kidney stones. Pt denies fevers, chest pain , SOB, emesis, diarrhea, constipation, dysuria. She tries to drink plenty of fluids every day, but it has been difficult with her decreased appetite. ER course was notable for: (1) UA (2) CT and US findings Recent Travel: denies PAST MEDICAL HISTORY: recurrent nephrolithiasis, HTN, DM, anemia, chronic back pain PAST SURGICAL HISTORY: right knee replacement x 4 complicated by MRSA infection requiring chronic doxycycline Social History: Smoking: denies Alcohol: denies Drugs: denies Family History: kidney stones in her sister Allergies No Known Allergies Allergy (Verified 10/07/17 12:39) HOME MEDICATIONS: Home Medications Medication Instructions Recorded Cyclobenzaprine HCl [Flexeril -] 10 mg PO TID PRN #21 tablet 02/21/16 Oxycodone HCl/Acetaminophen 1 - 2 tab PO Q6H #14 tab MDD 6 02/21/16 [Percocet 5-325 mg Tablet] Doxycycline Hyclate 100 mg PO DAILY 10/01/16 Metoprolol Succinate [Toprol Xl] 100 mg PO DAILY 10/01/16 REVIEW OF SYSTEMS CONSTITUTIONAL: Absent: fever, diaphoresis, generalized weakness, malaise, weight change present: chills, decreased appetite HEENT: Absent: rhinorrhea, nasal congestion, throat pain, throat swelling, difficulty swallowing, mouth swelling, ear pain, eye pain, visual changes CARDIOVASCULAR: Absent: chest pain, syncope, palpitations, irregular heart rate, lightheadedness , peripheral edema RESPIRATORY: Absent: cough, shortness of breath, dyspnea with exertion, orthopnea, wheezing, stridor, hemoptysis GASTROINTESTINAL: Absent: abdominal distension, vomiting, diarrhea, constipation, melena, hematochezia present: abdominal pain, nausea GENITOURINARY: Absent: dysuria, frequency, urgency, hesitancy, hematuria, genital pain present: flank pain MUSCULOSKELETAL: Absent: myalgia, arthralgia, joint swelling, neck pain present: back pain SKIN: Absent: rash, itching, pallor HEMATOLOGIC/IMMUNOLOGIC: Absent: easy bleeding, easy bruising, lymphadenopathy, frequent infections ENDOCRINE: Absent: unexplained weight gain, unexplained weight loss, heat intolerance, cold intolerance NEUROLOGIC: Absent: headache, focal weakness or paresthesias, dizziness, unsteady gait, seizure, mental status changes, bladder or bowel incontinence PSYCHIATRIC: Absent: anxiety, depression, suicidal or homicidal ideation, hallucinations. PHYSICAL EXAMINATION Vital Signs - 24 hr 10/07/17 12:35 Temperature 98.3 F Pulse Rate 76 Respiratory 20 Rate Blood Pressure 152/95 O2 Sat by Pulse 100 Oximetry (%) GENERAL: middle aged female, awake, alert, and fully oriented, in mild distress crying. HEENT: NC, AT, EOMI NECK: + JVD LUNGS: Breath sounds equal, clear to auscultation bilaterally. No wheezes, and no crackles. No accessory muscle use. HEART: tachycardic, regular rhythm, normal S1 and S2 without murmur, rub or gallop. ABDOMEN: normoactive BS, soft, moderately tender in LLQ, minimally tender in all other quadrants, ND Back: + left sided CVA tenderness MUSCULOSKELETAL: No LE edema NEUROLOGICAL: Cranial nerves II-XII intact. Normal speech. Laboratory Results - last 24 hr 10/07/17 10/07/17 10/07/17 13:00 13:32 15:00 WBC 7.0 D RBC 4.46 Hgb 9.0 L Hct 29.7 L MCV 66.5 L MCH 20.1 L MCHC 30.2 L RDW 18.4 H Plt Count 416 MPV 7.8 Neutrophils % 79.9 Lymphocytes % 10.4 Monocytes % 7.1 Eosinophils % 1.8 D Basophils % 0.8 Hypochromia 1+ Polychromasia 1+ Poikilocytosis 1+ Anisocytosis 2+ Microcytosis 1+ PT with INR INR Sodium 140 Potassium 4.4 Chloride 107 Carbon Dioxide 26 Anion Gap 7 L BUN 12 D Creatinine 1.0 Creat Clearance w eGFR 58.45 Random Glucose 88 D Calcium 8.4 L Total Bilirubin 0.4 AST 9 L D ALT 14 Alkaline Phosphatase 92 Total Protein 7.4 Albumin 3.4 Lipase 78 Urine Color Ltyellow Urine Appearance Slcloudy Urine pH 6.0 Ur Specific [place] 1.009 Urine Protein Negative Urine Glucose (UA) Negative Urine Ketones Negative Urine Blood 1+ H Urine Nitrite Negative Urine Bilirubin Negative Urine Urobilinogen Negative Urine WBC (Auto) 35 Urine RBC (Auto) 2 Ur Epithelial Cells Rare Urine Mucus Rare Blood Type Antibody Screen 10/07/17 10/07/17 17:23 17:23 WBC RBC Hgb Hct MCV MCH MCHC RDW Plt Count MPV Neutrophils % Lymphocytes % Monocytes % Eosinophils % Basophils % Hypochromia Polychromasia Poikilocytosis Anisocytosis Microcytosis PT with INR 12.60 H INR 1.12 Sodium Potassium Chloride Carbon Dioxide Anion Gap BUN Creatinine Creat Clearance w eGFR Random Glucose Calcium Total Bilirubin AST ALT Alkaline Phosphatase Total Protein Albumin Lipase Urine Color Urine Appearance Urine pH Ur Specific [place] Urine Protein Urine Glucose (UA) Urine Ketones Urine Blood Urine Nitrite Urine Bilirubin Urine Urobilinogen Urine WBC (Auto) Urine RBC (Auto) Ur Epithelial Cells Urine Mucus Blood Type O POSITIVE Antibody Screen Negative CT abd/pelvis: TECHNIQUE: Sequential axial images were obtained from the domes of the diaphragm through the symphysis pubis utilizing urinary tract calculi protocol. The lung bases are clear. There is a 9 mm calcification at the left ureterovesical junction consistent with a partially obstructing calculus. There is a mild to moderate degree of hydronephrosis associated with this stone. There is also perinephric stranding about the kidney, an additional sign of obstruction. There are multiple additional calcifications within both the right and left upper collecting systems. The largest additional stone is within the lower pole of the left kidney measuring 1.4 cm. There is no evidence of right- sided hydronephrosis. No significant abnormalities of the liver, spleen, pancreas, or adrenal glands are identified. There is no evidence of intra- abdominal, retroperitoneal or pelvic mass lesions, fluid collections or lymphadenopathy. The uterus is markedly enlarged consistent with multiple leiomyomata. There is no evidence of acute bony abnormalities. IMPRESSION: 1. 9 mm left UVJ calculus with mild to moderate hydronephrosis. 2. Additional bilateral nephrolithiasis with a 1.4 cm stone within the lower pole of the left kidney. 3. Fibroid uterus. Please see above discussion. ASSESSMENT/PLAN: 52F w/ hx of recurrent nephrolithiasis, HTN, DM, anemia, chronic back pain, fibroids, right knee replacement x 4 complicated by MRSA infection requiring chronic antibiotic prophylaxis presenting with acute abdominal and back pain. #abdominal and back pain -2/2 obstructive left-sided 9mm kidney stone -NS @ 100cc/hr -toradol q6h for pain -protonix -phenergan for nausea -urology consulted, Dr. Wall, procedure scheduled for 11am sal -NPO after midnight -flomax 0.4mg given -strain urine for stones #possible UTI -UA shows 35 wbc, leukocyte esterase pending, and pt reports chills although is afebrile and no leukocytosis -continue ceftriaxone -f/u Ucx #DM -f/u a1c -ISS, BGM TIDAC #chronic back pain -continue home percocet BID to prevent withdrawal -continue home flexeril #microcytic anemia -likely 2/2 hx of fibroids -f/u iron studies, folate, B12 -start ferrous sulfate #hx of MRSA in R knee -continue home doxycyline #HTN -continue home metoprolol -confirm all medications and dosages in am #liver mass on previous CT -f/u outpt for MRI or triple phase CT #FEN/ppx -NS @ 100cc/hr -electrolytes wnl -NPO after midnight for procedure -protonix -heparin held for surgery, SCDs Case discussed with attending, Dr. Vu. -Bong Izaguirre MD PGY1 Visit type - Emergency Visit Emergency Visit: Yes ED Registration Date: 10/07/17 Care time: The patient presented to the Emergency Department on the above date and was hospitalized for further evaluation of their emergent condition. - New Patient This patient is new to me today: Yes Date on this admission: 10/07/17 - Critical Care Critical Care patient: No
[2017-10-07] MEDS: KETOROLAC TROMETHAMINE 30 MG/1 ML VIAL IVPUSH SCH ×2 (19:36→19:44)
[2017-10-07] MEDS: SODIUM CHLORIDE 1,000 ML IV SCH (19:36)
[2017-10-07] MEDS: PANTOPRAZOLE 40 MG TABLET (FP) PO SCH (19:36)
[2017-10-07] MEDS: INSULIN SLIDING SCALE (NOVOLOG) 1 VIAL SQ SCH (19:38)
[2017-10-08] MEDS: SODIUM CHLORIDE 1,000 ML IV SCH ×3 (00:46→13:55)
[2017-10-08] MEDS: ACETAMINOPHEN 325 MG TABLET (FP) PO PRN (01:45)
[2017-10-08] MEDS: oxyCODONE HCL 5 MG TABLET PO PRN (01:46)
[2017-10-08] MEDS: KETOROLAC TROMETHAMINE 30 MG/1 ML VIAL IVPUSH SCH ×2 (03:15→12:29)
[2017-10-08] MEDS: INSULIN SLIDING SCALE (NOVOLOG) 1 VIAL SQ SCH ×3 (06:52→16:49)
[2017-10-08 08:07] LABS: BASO % 0.4 % (0-2.0); EOS % 1.2 % (0-4.5); HEMATOCRIT 24.6 % (32.4-45.2); HEMOGLOBIN 7.6 GM/dL (10.7-15.3); MCH 20.4 pg (25.7-33.7); MCHC 31.1 g/dl (32.0-36.0); MEAN CELL VOLUME 65.7 fl (80-96); MEAN PLT VOLUME 7.5 fl (7.5-11.1); MONO % 8.9 % (3.8-10.2); NEUT % 81.5 % (42.8-82.8); PLATELET COUNT 346 K/MM3 (134-434); RBC 3.75 M/mm3 (3.60-5.2); WHITE BLOOD COUNT 7.8 K/mm3 (4.0-10.0)
[2017-10-08 08:19] LABS: INR 1.19 (0.82-1.09); PROTHROMBIN TIME (PATIENT) 13.5 SEC (9.98-11.88)
[2017-10-08 08:22] LABS: ACTIVATED PTT 30.7 SECONDS (26.9-34.4)
[2017-10-08 09:11] LABS: ALBUMIN 2.7 g/dl (3.4-5.0); ANION GAP 10 (8-16); BLOOD UREA NITROGEN 8 mg/dL (7-18); CALCIUM 7.8 mg/dL (8.5-10.1); CHLORIDE 111 mmol/L (98-107); CO2 21 mmol/L (21-32); GLUCOSE,RANDOM 85 mg/dL (74-106); MAGNESIUM 1.9 mg/dL (1.8-2.4); SODIUM 142 mmol/L (136-145)
[2017-10-08 09:26] LABS: ALK PHOS 73 U/L (45-117); BILIRUBIN,TOTAL 0.6 mg/dL (0.2-1.0); CREATININE 0.8 mg/dL (0.55-1.02); PHOSPHOROUS 2.6 mg/dL (2.5-4.9); SGOT/AST 12 U/L (15-37); SGPT/ALT 11 U/L (12-78); TOT PROT 6.1 g/dl (6.4-8.2)
[2017-10-08] MEDS: CEFTRIAXONE 1 G/50 ML PREMIX 50 ML IVPB SCH (09:27)
[2017-10-08] MEDS: PANTOPRAZOLE 40 MG TABLET (FP) PO SCH (09:29)
[2017-10-08] MEDS: DOXYCYCLINE HYCLATE 100 MG CAPSULE PO SCH (09:29)
[2017-10-08] MEDS: METOPROLOL SUCCINATE 100 MG TAB.SR.24H (FP) PO SCH (09:29)
--- NOTE | 2017-10-08 10:30 | EKG ---
Test Reason : Blood Pressure : / mmHG Vent. Rate : 081 BPM Atrial Rate : 081 BPM P-R Int : 200 ms QRS Dur : 078 ms QT Int : 384 ms P-R-T Axes : 068 004 019 degrees QTc Int : 446 ms NORMAL SINUS RHYTHM LOW VOLTAGE QRS NONSPECIFIC T WAVE ABNORMALITY ABNORMAL ECG WHEN COMPARED WITH ECG OF 26-AUG-2017 21:39, NONSPECIFIC T WAVE ABNORMALITY NO LONGER EVIDENT IN LATERAL LEADS CLINICAL CORRELATION IS RECOMMENDED Confirmed by ALEKSEY WOOD, ANNETTE ([id number]) on 10/08/2017 10:30:20 AM Referred By: Confirmed By:ANNETTE RYDER MD
--- NOTE | 2017-10-08 11:14 | CON.GU ---
Consult Consult Specialty:: Referred by:: Horace Reason for Consultation:: L ureteral calculus - History of Present Illness Chief Complaint: L flank pain History of Present Illness: 52 yo f w hx nephrolithiasis pres to ER c/o L flank pain assoc w chills, found to have 9 mm L UVJ calculus, UTI, L hydro and L renal calc 14 mm. - History Source History Provided By: Patient, Medical Record Limitations to Obtaining History: No Limitations - Past Medical History Gastrointestinal: Yes: GERD Renal/: Yes: Renal Calculi, UTI ...LMP: 01/14/17 - Past Surgical History Past Surgical History: Yes: Joint Replacement - Alcohol/Substance Use Hx Alcohol Use: No - Smoking History Smoking history: Never smoked Have you smoked in the past 12 months: No Aproximately how many cigarettes per day: 0 Home Medications - Allergies Allergies/Adverse Reactions: Allergies Allergy/AdvReac Type Severity Reaction Status Date / Time No Known Allergies Allergy Verified 10/07/17 12:39 - Home Medications Home Medications: Ambulatory Orders Cyclobenzaprine HCl [Flexeril -] 10 mg PO TID PRN #21 tablet 02/21/16 Oxycodone HCl/Acetaminophen [Percocet 5-325 mg Tablet] 1 - 2 tab PO Q6H #14 tab MDD 6 02/21/16 Doxycycline Hyclate 100 mg PO DAILY 10/01/16 Metoprolol Succinate [Toprol Xl] 100 mg PO DAILY 10/01/16 Review of Systems - Review of Systems Constitutional: reports: Chills Gastrointestinal: reports: Nausea Genitourinary: reports: Flank Pain Physical Exam- Vital Signs: Vital Signs Temperature 99.2 F 10/08/17 06:00 Pulse Rate 96 H 10/08/17 11:01 Respiratory Rate 20 10/08/17 06:00 Blood Pressure 107/50 10/08/17 06:00 O2 Sat by Pulse Oximetry (%) 97 10/08/17 11:01 Renal/: Yes: CVA Tenderness - Left Kidneys: Yes: Flank Pain Left Labs: CBC, BMP 10/08/17 06:00 10/08/17 06:00 Imaging - Results Cat Scan: Report Reviewed, Image Reviewed Problem List - Problems (1) Kidney stone Code(s): N20.0 - CALCULUS OF KIDNEY (2) Ureteral calculus Code(s): N20.1 - CALCULUS OF URETER (3) Ureteral calculus Code(s): N20.1 - CALCULUS OF URETER (4) Hydronephrosis Code(s): N13.30 - UNSPECIFIED HYDRONEPHROSIS Assessment/Plan Imp: 9 mm L UVJ calculus, L hydro, UTI, L renal calculus Rec: urine c+s, iv abxs, cysto L JJ stent insertion. OK for disch on oral abxs and tamsulosin w f/u in my office to book LULL JJ change after UTI resolved, then ? ESWL L renal calc
--- NOTE | 2017-10-08 11:22 | OP ---
Operative Note - Note: Operative Date: 10/08/17 Pre-Operative Diagnosis: L ureteral calculus, L hydronephrosis, UTI, L renal calculus Operation: cystoscopy L JJ stent insertion Surgeon: Ambrose Wall Anesthesiologist/AMPOULE FILLER: Rubén Reed Anesthesia: General Estimated Blood Loss (mls): 0 Drains & Tubes with Location: 6 fr 26 cm L JJ stent Operative Report Dictated: Yes
[2017-10-08] MEDS ORDERED: ONDANSETRON 4 MG/2 ML VIAL IVPUSH PRN (12:06)
[2017-10-08] MEDS ORDERED: MIDAZOLAM HCL 2 MG/2 ML SINGLE DOSE VIAL ONE (12:10)
[2017-10-08] MEDS ORDERED: PROPOFOL 20 ML ONE (12:10)
[2017-10-08] MEDS ORDERED: LIDOCAINE HCL/PF 2% SDV 5ML VIAL ONE (12:11)
[2017-10-08] MEDS ORDERED: LACTATED RINGERS SOLUTION 1,000 ML IV SCH (12:15)
[2017-10-08] MEDS ORDERED: GENTAMICIN SO4 80 MG/2 ML VIAL IVPB ONE (12:22)
[2017-10-08] MEDS ORDERED: GENTAMICIN SO4 80 MG/2 ML VIAL ONE (12:26)
[2017-10-08] MEDS ORDERED: DEXAMETHASONE SOD PHOSPHATE 4 MG/1 ML VIAL ONE (12:30)
[2017-10-08] MEDS ORDERED: KETOROLAC TROMETHAMINE 30 MG/1 ML VIAL ONE (12:34)
[2017-10-08] MEDS ORDERED: ACETAMINOPHEN 1000 MG/100 ML VIAL (NON FORMULARY) IVPB ONE (12:52)
[2017-10-08] MEDS ORDERED: ACETAMINOPHEN INJECTION 100 ML IVPB ONE (12:52)
--- NOTE | 2017-10-08 16:12 | PN ---
Progress Note (short form) - Note Progress Note: Subjective: no fever or chills . has no pain Objective: Vital Signs: Last Vital Signs Temp Pulse Resp BP Pulse Ox 98.2 F 90 20 126/80 98 10/08/17 15:36 10/08/17 15:36 10/08/17 13:59 10/08/17 15:36 10/08/17 13:59 Laboratory Results - last 24 hr 10/07/17 10/07/17 10/07/17 13:00 15:00 17:23 WBC RBC Hgb Hct MCV MCH MCHC RDW Plt Count MPV Neutrophils % Lymphocytes % Monocytes % Eosinophils % Basophils % Hypochromia 1+ Polychromasia 1+ Poikilocytosis 1+ Anisocytosis 2+ Microcytosis 1+ PT with INR 12.60 H INR 1.12 PTT (Actin FS) Sodium Potassium Chloride Carbon Dioxide Anion Gap BUN Creatinine Creat Clearance w eGFR POC Glucometer Random Glucose Hemoglobin A1c % Calcium Phosphorus Magnesium Ferritin Total Bilirubin AST ALT Alkaline Phosphatase Total Protein Albumin Vitamin B12 Serum Folate Ur Leukocyte Esterase 3+ H Blood Type Antibody Screen 10/07/17 10/07/17 10/08/17 17:23 19:28 06:00 WBC 7.8 RBC 3.75 Hgb 7.6 L D Hct 24.6 L D MCV 65.7 L MCH 20.4 L MCHC 31.1 L RDW 18.0 H Plt Count 346 MPV 7.5 Neutrophils % 81.5 Lymphocytes % 8.0 D Monocytes % 8.9 Eosinophils % 1.2 Basophils % 0.4 Hypochromia Polychromasia Poikilocytosis Anisocytosis Microcytosis PT with INR INR PTT (Actin FS) Sodium Potassium Chloride Carbon Dioxide Anion Gap BUN Creatinine Creat Clearance w eGFR POC Glucometer 112.77503 Random Glucose Hemoglobin A1c % Calcium Phosphorus Magnesium Ferritin Total Bilirubin AST ALT Alkaline Phosphatase Total Protein Albumin Vitamin B12 Serum Folate Ur Leukocyte Esterase Blood Type O POSITIVE Antibody Screen Negative 10/08/17 10/08/17 10/08/17 06:00 06:00 06:00 WBC RBC Hgb Hct MCV MCH MCHC RDW Plt Count MPV Neutrophils % Lymphocytes % Monocytes % Eosinophils % Basophils % Hypochromia Polychromasia Poikilocytosis Anisocytosis Microcytosis PT with INR 13.50 H INR 1.19 H PTT (Actin FS) 30.7 Sodium 142 Potassium 4.0 Chloride 111 H Carbon Dioxide 21 Anion Gap 10 BUN 8 D Creatinine 0.8 Creat Clearance w eGFR > 60 POC Glucometer Random Glucose 85 Hemoglobin A1c % 5.7 D Calcium 7.8 L Phosphorus 2.6 Magnesium 1.9 Ferritin Total Bilirubin 0.6 D AST 12 L D ALT 11 L D Alkaline Phosphatase 73 D Total Protein 6.1 L Albumin 2.7 L D Vitamin B12 Serum Folate 12 Ur Leukocyte Esterase Blood Type Antibody Screen 10/08/17 10/08/17 10/08/17 06:00 06:32 11:08 WBC RBC Hgb Hct MCV MCH MCHC RDW Plt Count MPV Neutrophils % Lymphocytes % Monocytes % Eosinophils % Basophils % Hypochromia Polychromasia Poikilocytosis Anisocytosis Microcytosis PT with INR INR PTT (Actin FS) Sodium Potassium Chloride Carbon Dioxide Anion Gap BUN Creatinine Creat Clearance w eGFR POC Glucometer 96 85 Random Glucose Hemoglobin A1c % Calcium Phosphorus Magnesium Ferritin 4.071 L Total Bilirubin AST ALT Alkaline Phosphatase Total Protein Albumin Vitamin B12 467 Serum Folate Ur Leukocyte Esterase Blood Type Antibody Screen Physical Exam: NAD, AAox3 . looks pale HEENT: EOMI, MMM, no facial droop. Cv: RRR, no MRG lungs: CTAB Ext: NO edema. R anterior well healed knee scar. DP 2+ b/l . no signs of fungal infection. Abd: soft, ND , NL BS , no TTP ASSESSMENT AND PLAN: 52 y/o lady with h/o DM, HTN, R knee replacement complicated by MRSA infection who presented with L flank pain , She was found to have partially obstructing L UVJ stone with signs of UTI . 1- Partially obstructing L UVJ stone with L hydronephrosis and signs of UTI . - s/p stent placement today - cont IVF - dc toradol - follow urine cx 2- HTN: cont metoprolol . 3- Chronic back pain, cont percocet BID 4- 2.5 cm R hepatic lobe lesion frm 03/25 - this will need to be followed as out pt , with MRI or triple phase CT. 5- Microcytic anemia : likely iron def due to uterine fibroids and menorrhagia - iron def on iron studies - HB dropped to 7.6 , after IVF. likely this is her base line ( hb was 7.5 in ) - repeat HB in am , transfuse if less than 7 - start iron supp 6- Prediabetes: Hb 5.6 . diet control 7-ambulatory. hold off heparin due to anemia Visit type - Emergency Visit Emergency Visit: Yes ED Registration Date: 10/07/17 Care time: The patient presented to the Emergency Department on the above date and was hospitalized for further evaluation of their emergent condition. - New Patient This patient is new to me today: No - Critical Care Critical Care patient: No
--- NOTE | 2017-10-08 16:41 | OP ---
DATE OF OPERATION: 10/08/2017 PREOPERATIVE DIAGNOSES: Left ureteral calculus, left hydronephrosis, urinary tract infection. POSTOPERATIVE DIAGNOSES: Left ureteral calculus, left hydronephrosis, urinary tract infection. PROCEDURE: Cystoscopy, left double-J stent insertion. SURGEON: Ambrose Wray MD INDUSTRIAL MACHINERY MECHANIC: None. ANESTHESIA: General via laryngeal mask. SPECIMENS: None. CULTURES: None. DRAINS: A 6-Fijian 26-cm left double-J stent. ESTIMATED BLOOD LOSS: Negligible. COMPLICATIONS: None. DESCRIPTION OF PROCEDURE: Patient was brought in the operating room, placed on the operating table in supine position. After administration of general anesthesia via laryngeal mask, intravenous antibiotics were administered and then the patient was placed in dorsal lithotomy position. Perineum and vagina were prepped and draped in the usual sterile manner. The 22-Fijian cystoscope was inserted into the bladder. The urine was evacuated. The 30-degree telescope was inserted. Cystoscopy was performed. This demonstrated no foreign bodies, tumor, stones or inflammation. Both ureteral orifices were in their usual location with diminished efflux from the left ureteral orifice. The left ureteral orifice was now cannulated with the 0.038 guidewire which was advanced to the level of the renal pelvis under fluoroscopic and direct visual guidance. A dual lumen catheter was inserted and retrograde pyelogram was done and demonstrated mild left hydronephrosis, questionable filling defect in the left distal ureter. The dual lumen catheter was removed and a 6-Fijian 26-cm left double-J stent was inserted over the guidewire under direct visual and fluoroscopic guidance, leaving 1 coil in the renal pelvis and 1 coil in the bladder. She tolerated the procedure well and transferred to recovery in stable condition. AMBROSE WRAY M.D. [id number]
[2017-10-08] MEDS: FERROUS GLUCONATE 324 MG TAB (FP) PO SCH (21:21)
[2017-10-09] MEDS: oxyCODONE HCL 5 MG TABLET PO PRN (00:45)
[2017-10-09] MEDS: ACETAMINOPHEN 325 MG TABLET (FP) PO PRN ×2 (00:46→21:23)
[2017-10-09] MEDS: INSULIN SLIDING SCALE (NOVOLOG) 1 VIAL SQ SCH ×3 (06:33→17:18)
--- NOTE | 2017-10-09 08:02 | PN ---
Physical Exam: SUBJECTIVE: Patient seen and examined. No fever or chills. Pain well controlled. No dysuria, but has crampy LUQ pain during urination; 1x BM today. Tolerating diet. Ambulating well. OBJECTIVE: Vital Signs Period Temp Pulse Resp BP Sys/Thomas Pulse Ox Last 24 Hr 97.8 F-99.5 F 78-99 16-20 105-134/64-80 97-100 GENERAL: sitting comfortably in bed, nad, aaox3 EYES: sclera anicteric, conjunctiva clear ENT: oropharynx clear without exudates, MMM LUNGS: CTAB HEART: rrr, normal s1/s2, no m/r/g ABDOMEN: Soft, non-distended, mild ttp LLQ>LUQ : mild L CVA tenderness, (-)suprapubic tenderness LOWER EXTREMITIES: 2+ DP pulses b/l, wwp, no edema CBC, BMP 10/09/17 07:28 10/08/17 06:00 Hepatic Panel Total Bilirubin 0.6 mg/dL (0.2-1.0) D 10/08/17 06:00 AST 12 U/L (15-37) L D 10/08/17 06:00 ALT 11 U/L (12-78) L D 10/08/17 06:00 Alkaline Phosphatase 73 U/L (45-117) D 10/08/17 06:00 Albumin 2.7 g/dl (3.4-5.0) L D 10/08/17 06:00 Microbiology 10/08/17 06:30 Nares - Mrsa Screen - Left MRSA Screen - Final NO MRSA ISOLATED 10/08/17 06:03 Nares - Mrsa Screen - Right MRSA Screen - Final NO MRSA ISOLATED 10/07/17 17:33 Urine - Urine Clean Catch Urine Culture - Preliminary Non Lactose Fermenting Gnb Active Medications Acetaminophen (Tylenol -) 325 mg PO Q12H PRN PRN Reason: FEVER OR PAIN Last Admin: 10/09/17 00:46 Dose: 325 mg Cyclobenzaprine HCl (Flexeril -) 10 mg PO Q8H PRN PRN Reason: MUSCLE SPASMS Docusate Sodium (Colace -) 100 mg PO DAILY [facility] Last Admin: 10/09/17 11:45 Dose: 100 mg Doxycycline Hyclate (Vibramycin -) 100 mg PO DAILY [facility] Last Admin: 10/09/17 10:23 Dose: 100 mg Ferrous Gluconate (Fergon -) 324 mg PO BID [facility] Last Admin: 10/09/17 10:23 Dose: 324 mg CEFTRIAXONE 1 G/50 ML PREMIX (Ceftriaxone 1 Gm-D5w Bag) 50 mls @ 100 mls/hr IVPB DAILY [facility] Last Admin: 10/09/17 10:23 Dose: 100 mls/hr Insulin Aspart (Novolog Vial Sliding Scale -) 1 vial SQ TIDAC [facility] PRN Reason: Protocol Last Admin: 10/09/17 11:33 Dose: Not Given Metoprolol Succinate (Toprol Xl -) 100 mg PO DAILY [facility] Last Admin: 10/09/17 10:23 Dose: 100 mg Ondansetron HCl (Zofran Injection) 4 mg IVPUSH Q6H PRN PRN Reason: NAUSEA AND/OR VOMITING Oxycodone HCl (Roxicodone -) 5 mg PO Q12H PRN Last Admin: 10/09/17 00:45 Dose: 5 mg Pantoprazole Sodium (Protonix -) 40 mg PO DAILY [facility] Last Admin: 10/09/17 10:23 Dose: 40 mg Promethazine HCl (Phenergan Injection -) 12.5 mg IVPUSH Q4H PRN PRN Reason: NAUSEA AND/OR VOMITING Last Admin: 10/08/17 07:46 Dose: 12.5 mg ASSESSMENT/PLAN: 52yo woman with PMH of recurrent nephrolithiasis, HTN, anemia, uterine fibroids , R knee replacement x 4 c/b MRSA infections (on chronic doxycycline ppx) who p/ w acute abdominal and L flank pain, and found to have partially obstructing 9mm L UVJ stone and mild hydronephrosis. #obstructing L UVJ stone s/p cystoscopy and stent placement yesterday -Urology following (Dr. Wall). Pt will need OP LULL JJ stent change -Continue flomax 0.4mg daily -Protonix 40mg daily #?UTI, UA revealed pyuria (WBC 35); Urine Cx - 20-30CFU of non-lactose fermenting GNB -f/u Cx ID and sensitivities -Continue Ceftriaxone 1gm IVP - Day 2 #pre-diabetes - A1c 5.7% -counseled patient on diet and lifestyle modifications #chronic back pain -cont home 5-325 Percocet BID PRN and Flexeril PRN #microcytic anemia, likely 2/2 uterine fibroids, folate and B12 wnl, low Ferritin -f/u iron studies -continue Ferrous sulfate -Colace for constipation #hx of MRSA in R knee -continue home doxycycline #HTN - continue home Metoprolol #liver mass on previous CT -f/u outpt for MRI or triple phase CT #FEN: PO hydration / lytes wnl / DM, low Na diet #PPX -DVT - scd's -GI - protonix 40mg daily #DISPO: likely d/c within 24 once have Urine Cx sensitivities FULL code d/w Dr. Horace Mckeon MD PGY1 - Internal Medicine Visit type - Emergency Visit Emergency Visit: No - New Patient This patient is new to me today: Yes Date on this admission: 10/09/17 - Critical Care Critical Care patient: No
[2017-10-09 09:02] LABS: HEMATOCRIT 27.3 % (32.4-45.2); HEMOGLOBIN 8.1 GM/dL (10.7-15.3); MCHC 29.7 g/dl (32.0-36.0); MEAN CELL VOLUME 67.1 fl (80-96); MEAN PLT VOLUME 7.9 fl (7.5-11.1); PLATELET COUNT 373 K/MM3 (134-434); RBC 4.07 M/mm3 (3.60-5.2); RDW 18.3 % (11.6-15.6); WHITE BLOOD COUNT 12.8 K/mm3 (4.0-10.0)
--- NOTE | 2017-10-09 09:06 | PN ---
Progress Note (short form) - Note Progress Note: Anesthesiology Post-op POD #1 s/p Cystoscopy with stent placement under GA. Pt. is awake and alert. She c/o some pain/discomfort when she voids which she will d/w surgeon. Otherwise, she has no complaints. VSS.
[2017-10-09 09:09] LABS: MCH 19.9 pg (25.7-33.7)
[2017-10-09] MEDS: METOPROLOL SUCCINATE 100 MG TAB.SR.24H (FP) PO SCH (10:23)
[2017-10-09] MEDS: CEFTRIAXONE 1 G/50 ML PREMIX 50 ML IVPB SCH (10:23)
[2017-10-09] MEDS: DOXYCYCLINE HYCLATE 100 MG CAPSULE PO SCH (10:23)
[2017-10-09] MEDS: FERROUS GLUCONATE 324 MG TAB (FP) PO SCH ×2 (10:23→21:25)
[2017-10-09] MEDS: PANTOPRAZOLE 40 MG TABLET (FP) PO SCH (10:23)
[2017-10-09] MEDS: DOCUSATE SODIUM 100 MG CAPSULE (FP) PO SCH (11:45)
[2017-10-09] MEDS ORDERED: TAMSULOSIN HCL 0.4 MG CAP.ER.24H (FP) PO ONE (12:56)
--- NOTE | 2017-10-09 15:50 | PN ---
Teaching Attending Note Name of Resident: Columba Mckeon ATTENDING PHYSICIAN STATEMENT I saw and evaluated the patient. I reviewed the resident's note and discussed the case with the resident. I agree with the resident's findings and plan as documented. SUBJECTIVE: No fever or chills. has discomfort in LLQ with urination . no hematuria. OBJECTIVE: NAD, AAox3 . Cv: RRR, no MRG lungs: CTAB Ext: NO edema. R anterior well healed knee scar. DP 2+ b/l . Abd: soft, ND , NL BS , minimal discomfort in LLQ with no rebound tenderness or guarding. ASSESSMENT AND PLAN: 52 y/o lady with h/o DM, HTN, R knee replacement complicated by MRSA infection who presented with L flank pain , She was found to have partially obstructing L UVJ stone with signs of UTI. 1- Partially obstructing L UVJ stone with L hydronephrosis and signs of UTI . s/ p stent placement 10/08 urine cx with low colony count of non lactose fermenting bacili. in the setting of an obstructing stone nad a stent placement , I will treat this infection even with low colony count . - DC IVF - follow urine cx final ID and Sensitivity 2- HTN: cont metoprolol . 3- Chronic back pain, cont percocet BID 4- 2.5 cm R hepatic lobe lesion from 03/25 - this will need to be followed as out pt , with MRI or triple phase CT. 5- Microcytic anemia : likely iron def due to uterine fibroids and menorrhagia - iron def per very low ferritin, rest pending - stable Hb at base line - iron supplements 6- Prediabetes: Hb 5.6. diet control 7-Ambulatory. dc tomorrow when urine cx is available
[2017-10-09] MEDS ORDERED: oxyCODONE HCL 5 MG TABLET PO PRN (16:10)
[2017-10-10 06:06] LABS: SERUM IRON SATURATION 9 % (15-55); TOTAL IRON BINDING CAPACITY 352 ug/dL (250-450); UIBC 321 ug/dL (131-425)
[2017-10-10] MEDS: INSULIN SLIDING SCALE (NOVOLOG) 1 VIAL SQ SCH ×2 (06:21→12:05)
[2017-10-10 08:28] LABS: HEMATOCRIT 23.9 % (32.4-45.2); HEMOGLOBIN 7.4 GM/dL (10.7-15.3); MCH 20.5 pg (25.7-33.7); MCHC 30.9 g/dl (32.0-36.0); MEAN CELL VOLUME 66.1 fl (80-96); MEAN PLT VOLUME 7.6 fl (7.5-11.1); PLATELET COUNT 346 K/MM3 (134-434); RBC 3.62 M/mm3 (3.60-5.2); RDW 18.3 % (11.6-15.6); WHITE BLOOD COUNT 9.2 K/mm3 (4.0-10.0)
[2017-10-10] MEDS ORDERED: TAMSULOSIN HCL 0.4 MG CAP.ER.24H (FP) PO SCH (08:30)
[2017-10-10] MEDS: PANTOPRAZOLE 40 MG TABLET (FP) PO SCH (10:46)
[2017-10-10] MEDS: DOCUSATE SODIUM 100 MG CAPSULE (FP) PO SCH (10:46)
[2017-10-10] MEDS: DOXYCYCLINE HYCLATE 100 MG CAPSULE PO SCH (10:46)
[2017-10-10] MEDS: FERROUS GLUCONATE 324 MG TAB (FP) PO SCH (10:46)
[2017-10-10] MEDS: CEFTRIAXONE 1 G/50 ML PREMIX 50 ML IVPB SCH (10:46)
[2017-10-10] MEDS: METOPROLOL SUCCINATE 100 MG TAB.SR.24H (FP) PO SCH (10:47)
[2017-10-10] MEDS: ACETAMINOPHEN 325 MG TABLET (FP) PO PRN (12:02)
--- NOTE | 2017-10-10 13:51 | PN ---
Teaching Attending Note Name of Resident: Bong Izaguirre ATTENDING PHYSICIAN STATEMENT I saw and evaluated the patient. I reviewed the resident's note and discussed the case with the resident. I agree with the resident's findings and plan as documented. SUBJECTIVE: no fever or abd pain OBJECTIVE: NAD, AAox3 . Cv: RRR, no MRG lungs: CTAB Ext: NO edema. R anterior well healed knee scar. DP 2+ b/l . Abd: soft, ND , NL BS , no TTP ASSESSMENT AND PLAN: 52 y/o lady with h/o DM, HTN, R knee replacement complicated by MRSA infection who presented with L flank pain , She was found to have partially obstructing L UVJ stone with signs of UTI. 1- Partially obstructing L UVJ stone with L hydronephrosis and signs of UTI . s/ p stent placement 10/08 U x with proteus, will cont with Augmentin x 4 more doses ( to complete 7 day course for complicated UTI ) . for pain, ibuprofen q 12h , x 3 days 2- HTN: cont metoprolol . 3- Chronic back pain, cont percocet BID 4- 2.5 cm R hepatic lobe lesion from 03/25 - this will need to be followed as out pt , with MRI or triple phase CT. 5- Microcytic anemia :iron def . cont iron supp d/w HEAD CAGER for hysterectomy 6- Prediabetes: Hb 5.6. diet control dc home
[2017-10-10 13:57] VITALS: BP 127/78; PULSE 78; TEMP 97.7
--- NOTE | 2017-10-11 18:41 | DS ---
Physical Exam: SUBJECTIVE: Patient seen and examined No acute events overnight. Pt denies fevers, chills, chest pain, SOB, n/v/d/c, and dysuria. OBJECTIVE: Vital Signs Temperature 97.7 F 10/10/17 13:56 Pulse Rate 78 10/10/17 13:56 Respiratory Rate 18 10/10/17 08:00 Blood Pressure 127/78 10/10/17 13:56 O2 Sat by Pulse Oximetry (%) 98 10/10/17 09:00 PHYSICAL EXAM GENERAL: sitting comfortably in bed, nad, aaox3 EYES: sclera anicteric, conjunctiva clear ENT: oropharynx clear without exudates, MMM LUNGS: CTAB HEART: rrr, normal s1/s2, no m/r/g ABDOMEN: Soft, non-distended, mild ttp LLQ : mild L CVA tenderness, (-)suprapubic tenderness LOWER EXTREMITIES: 2+ DP pulses b/l, wwp, no edema LABS Laboratory Tests 10/07/17 10/07/17 10/07/17 13:00 13:32 15:00 WBC 7.0 D RBC 4.46 Hgb 9.0 L Hct 29.7 L MCV 66.5 L MCH 20.1 L MCHC 30.2 L RDW 18.4 H Plt Count 416 MPV 7.8 Neutrophils % 79.9 Lymphocytes % 10.4 Monocytes % 7.1 Eosinophils % 1.8 D Basophils % 0.8 Hypochromia 1+ Polychromasia 1+ Poikilocytosis 1+ Anisocytosis 2+ Microcytosis 1+ PT with INR INR PTT (Actin FS) Sodium 140 Potassium 4.4 Chloride 107 Carbon Dioxide 26 Anion Gap 7 L BUN 12 D Creatinine 1.0 Creat Clearance w eGFR 58.45 POC Glucometer Random Glucose 88 D Hemoglobin A1c % Calcium 8.4 L Phosphorus Magnesium Iron TIBC Iron Saturation Ferritin Total Bilirubin 0.4 AST 9 L D ALT 14 Alkaline Phosphatase 92 Total Protein 7.4 Albumin 3.4 Lipase 78 Vitamin B12 Serum Folate Urine Color Ltyellow Urine Appearance Slcloudy Urine pH 6.0 Ur Specific [place] 1.009 Urine Protein Negative Urine Glucose (UA) Negative Urine Ketones Negative Urine Blood 1+ H Urine Nitrite Negative Urine Bilirubin Negative Urine Urobilinogen Negative Ur Leukocyte Esterase 3+ H Urine WBC (Auto) 35 Urine RBC (Auto) 2 Ur Epithelial Cells Rare Urine Mucus Rare Blood Type Antibody Screen 10/07/17 10/07/17 10/07/17 17:23 17:23 19:28 WBC RBC Hgb Hct MCV MCH MCHC RDW Plt Count MPV Neutrophils % Lymphocytes % Monocytes % Eosinophils % Basophils % Hypochromia Polychromasia Poikilocytosis Anisocytosis Microcytosis PT with INR 12.60 H INR 1.12 PTT (Actin FS) Sodium Potassium Chloride Carbon Dioxide Anion Gap BUN Creatinine Creat Clearance w eGFR POC Glucometer [phone] Random Glucose Hemoglobin A1c % Calcium Phosphorus Magnesium Iron TIBC Iron Saturation Ferritin Total Bilirubin AST ALT Alkaline Phosphatase Total Protein Albumin Lipase Vitamin B12 Serum Folate Urine Color Urine Appearance Urine pH Ur Specific [place] Urine Protein Urine Glucose (UA) Urine Ketones Urine Blood Urine Nitrite Urine Bilirubin Urine Urobilinogen Ur Leukocyte Esterase Urine WBC (Auto) Urine RBC (Auto) Ur Epithelial Cells Urine Mucus Blood Type O POSITIVE Antibody Screen Negative 10/08/17 10/08/17 10/08/17 06:00 06:00 06:00 WBC 7.8 RBC 3.75 Hgb 7.6 L D Hct 24.6 L D MCV 65.7 L MCH 20.4 L MCHC 31.1 L RDW 18.0 H Plt Count 346 MPV 7.5 Neutrophils % 81.5 Lymphocytes % 8.0 D Monocytes % 8.9 Eosinophils % 1.2 Basophils % 0.4 Hypochromia Polychromasia Poikilocytosis Anisocytosis Microcytosis PT with INR 13.50 H INR 1.19 H PTT (Actin FS) 30.7 Sodium 142 Potassium 4.0 Chloride 111 H Carbon Dioxide 21 Anion Gap 10 BUN 8 D Creatinine 0.8 Creat Clearance w eGFR > 60 POC Glucometer Random Glucose 85 Hemoglobin A1c % Calcium 7.8 L Phosphorus 2.6 Magnesium 1.9 Iron TIBC Iron Saturation Ferritin Total Bilirubin 0.6 D AST 12 L D ALT 11 L D Alkaline Phosphatase 73 D Total Protein 6.1 L Albumin 2.7 L D Lipase Vitamin B12 Serum Folate 12 Urine Color Urine Appearance Urine pH Ur Specific [place] Urine Protein Urine Glucose (UA) Urine Ketones Urine Blood Urine Nitrite Urine Bilirubin Urine Urobilinogen Ur Leukocyte Esterase Urine WBC (Auto) Urine RBC (Auto) Ur Epithelial Cells Urine Mucus Blood Type Antibody Screen 10/08/17 10/08/17 10/08/17 06:00 06:00 06:00 WBC RBC Hgb Hct MCV MCH MCHC RDW Plt Count MPV Neutrophils % Lymphocytes % Monocytes % Eosinophils % Basophils % Hypochromia Polychromasia Poikilocytosis Anisocytosis Microcytosis PT with INR INR PTT (Actin FS) Sodium Potassium Chloride Carbon Dioxide Anion Gap BUN Creatinine Creat Clearance w eGFR POC Glucometer Random Glucose Hemoglobin A1c % 5.7 D Calcium Phosphorus Magnesium Iron 31 TIBC 352 Iron Saturation 9 L Ferritin 4.071 L Total Bilirubin AST ALT Alkaline Phosphatase Total Protein Albumin Lipase Vitamin B12 467 Serum Folate Urine Color Urine Appearance Urine pH Ur Specific [place] Urine Protein Urine Glucose (UA) Urine Ketones Urine Blood Urine Nitrite Urine Bilirubin Urine Urobilinogen Ur Leukocyte Esterase Urine WBC (Auto) Urine RBC (Auto) Ur Epithelial Cells Urine Mucus Blood Type Antibody Screen 10/08/17 10/08/17 10/08/17 06:32 11:08 13:26 WBC RBC Hgb Hct MCV MCH MCHC RDW Plt Count MPV Neutrophils % Lymphocytes % Monocytes % Eosinophils % Basophils % Hypochromia Polychromasia Poikilocytosis Anisocytosis Microcytosis PT with INR INR PTT (Actin FS) Sodium Potassium Chloride Carbon Dioxide Anion Gap BUN Creatinine Creat Clearance w eGFR POC Glucometer 96 85 88 Random Glucose Hemoglobin A1c % Calcium Phosphorus Magnesium Iron TIBC Iron Saturation Ferritin Total Bilirubin AST ALT Alkaline Phosphatase Total Protein Albumin Lipase Vitamin B12 Serum Folate Urine Color Urine Appearance Urine pH Ur Specific [place] Urine Protein Urine Glucose (UA) Urine Ketones Urine Blood Urine Nitrite Urine Bilirubin Urine Urobilinogen Ur Leukocyte Esterase Urine WBC (Auto) Urine RBC (Auto) Ur Epithelial Cells Urine Mucus Blood Type Antibody Screen 10/08/17 10/08/17 10/09/17 13:28 16:47 06:31 WBC RBC Hgb Hct MCV MCH MCHC RDW Plt Count MPV Neutrophils % Lymphocytes % Monocytes % Eosinophils % Basophils % Hypochromia Polychromasia Poikilocytosis Anisocytosis Microcytosis PT with INR INR PTT (Actin FS) Sodium Potassium Chloride Carbon Dioxide Anion Gap BUN Creatinine Creat Clearance w eGFR POC Glucometer 96 177 142 Random Glucose Hemoglobin A1c % Calcium Phosphorus Magnesium Iron TIBC Iron Saturation Ferritin Total Bilirubin AST ALT Alkaline Phosphatase Total Protein Albumin Lipase Vitamin B12 Serum Folate Urine Color Urine Appearance Urine pH Ur Specific [place] Urine Protein Urine Glucose (UA) Urine Ketones Urine Blood Urine Nitrite Urine Bilirubin Urine Urobilinogen Ur Leukocyte Esterase Urine WBC (Auto) Urine RBC (Auto) Ur Epithelial Cells Urine Mucus Blood Type Antibody Screen 10/09/17 10/09/17 10/09/17 07:28 11:32 17:16 WBC 12.8 H D RBC 4.07 Hgb 8.1 L Hct 27.3 L MCV 67.1 L MCH 19.9 L MCHC 29.7 L RDW 18.3 H Plt Count 373 MPV 7.9 Neutrophils % Lymphocytes % Monocytes % Eosinophils % Basophils % Hypochromia Polychromasia Poikilocytosis Anisocytosis Microcytosis PT with INR INR PTT (Actin FS) Sodium Potassium Chloride Carbon Dioxide Anion Gap BUN Creatinine Creat Clearance w eGFR POC Glucometer 125 115 Random Glucose Hemoglobin A1c % Calcium Phosphorus Magnesium Iron TIBC Iron Saturation Ferritin Total Bilirubin AST ALT Alkaline Phosphatase Total Protein Albumin Lipase Vitamin B12 Serum Folate Urine Color Urine Appearance Urine pH Ur Specific [place] Urine Protein Urine Glucose (UA) Urine Ketones Urine Blood Urine Nitrite Urine Bilirubin Urine Urobilinogen Ur Leukocyte Esterase Urine WBC (Auto) Urine RBC (Auto) Ur Epithelial Cells Urine Mucus Blood Type Antibody Screen 10/10/17 10/10/17 10/10/17 06:19 07:35 12:05 WBC 9.2 RBC 3.62 Hgb 7.4 L Hct 23.9 L MCV 66.1 L MCH 20.5 L MCHC 30.9 L RDW 18.3 H Plt Count 346 MPV 7.6 Neutrophils % Lymphocytes % Monocytes % Eosinophils % Basophils % Hypochromia Polychromasia Poikilocytosis Anisocytosis Microcytosis PT with INR INR PTT (Actin FS) Sodium Potassium Chloride Carbon Dioxide Anion Gap BUN Creatinine Creat Clearance w eGFR POC Glucometer 92 88 Random Glucose Hemoglobin A1c % Calcium Phosphorus Magnesium Iron TIBC Iron Saturation Ferritin Total Bilirubin AST ALT Alkaline Phosphatase Total Protein Albumin Lipase Vitamin B12 Serum Folate Urine Color Urine Appearance Urine pH Ur Specific [place] Urine Protein Urine Glucose (UA) Urine Ketones Urine Blood Urine Nitrite Urine Bilirubin Urine Urobilinogen Ur Leukocyte Esterase Urine WBC (Auto) Urine RBC (Auto) Ur Epithelial Cells Urine Mucus Blood Type Antibody Screen Microbiology 10/07/17 17:33 Urine - Urine Clean Catch Urine Culture - Final Proteus Mirabilis 10/08/17 06:30 Nares - Mrsa Screen - Left MRSA Screen - Final NO MRSA ISOLATED 10/08/17 06:03 Nares - Mrsa Screen - Right MRSA Screen - Final NO MRSA ISOLATED CT abd/pelvis: Sequential axial images were obtained from the domes of the diaphragm through the symphysis pubis utilizing urinary tract calculi protocol. The lung bases are clear. There is a 9 mm calcification at the left ureterovesical junction consistent with a partially obstructing calculus. There is a mild to moderate degree of hydronephrosis associated with this stone. There is also perinephric stranding about the kidney, an additional sign of obstruction. There are multiple additional calcifications within both the right and left upper collecting systems. The largest additional stone is within the lower pole of the left kidney measuring 1.4 cm. There is no evidence of right-sided hydronephrosis. No significant abnormalities of the liver, spleen, pancreas, or adrenal glands are identified. There is no evidence of intra-abdominal, retroperitoneal or pelvic mass lesions, fluid collections or lymphadenopathy. The uterus is markedly enlarged consistent with multiple leiomyomata. There is no evidence of acute bony abnormalities. IMPRESSION: 1. 9 mm left UVJ calculus with mild to moderate hydronephrosis. 2. Additional bilateral nephrolithiasis with a 1.4 cm stone within the lower pole of the left kidney. 3. Fibroid uterus. Please see above discussion. HOSPITAL COURSE: Date of Admission:10/07/17 Date of Discharge: 10/11/17 52 y/o lady with h/o DM, HTN, and R knee replacement complicated by MRSA infection, who presented with L flank pain, and was found to have a partially obstructing L UVJ stone with signs of UTI. For her stone, she was treated with IV fluids, pain control, anti-emetics, and a ureteral stent was placed. For her UTI, she was started on a course of abx. On a CT scan from 03/25, a hepatic lobe lesion was found, and pt was instructed to f/u as an outpatient with further imaging. For pt's microcytic anemia, she was instructed to f/u with her LOOP P[facility]ER for possible hysterectomy or fibroid removal. Today, pt has normal vitals, marked improvement in physical exam and symptoms, and is stable for discharge home. Pt instructed to finish course of antibiotics and to f/u with Urology, [facility], and PCP. -Bong Izaguirre MD PGY1 Minutes to complete discharge: 35 Discharge Summary Reason For Visit: CALCULUS OF KIDNEY Condition: Improved - Instructions Diet, Activity, Other Instructions: You were admitted to the hospital and treated for a stone in your left ureter. A stent was placed and you were treated with antibiotics for a urinary tract infection. Medications: Take the same medications as before except: 1. Start taking augmentin 500mg, twice a day, for 4 more days to finish your antibiotic course. 2. Take ferrous sulfate 325mg twice a day for one week for your anemia. Then, switch to three times a day. 3. Take ibuprofen twice a day as needed for your pain. Do not use for more than 3 days in order to prevent kidney damage and bleeding. Follow-ups: 1. Follow up with your PCP within one week. We have given you a script for a lab draw called a CBC to be drawn in one week. Please fax the results to your PCP. 2. Follow up with urology in one week. 3. Follow up with OBGYN to discuss your anemia and possible hysterectomy or fibroid removal. If you don't have one, we have referred you to one. 4. Follow up with a liver specialist for your liver mass. You will likely need an MRI or CT scan. We have referred you to Dr. Jane. Recommendations: 1.You should eat a low salt and low carbohydrate dinner. It is important to stay hydrated and drink lot of fluids. If you develop any pain on urination, flank pain, fevers, chills, blood in your urine, or any other concerning symptoms, return to the ED. Referrals: Jahaira Garcia MD [Primary Care Provider] - Ambrose Wall MD [Staff Physician] - Anjum Jane MD [Staff Physician] - Wil Elizabeth MD [Staff Physician] - Disposition: HOME - Home Medications Comprehensive Discharge Medication List: Ambulatory Orders Doxycycline Hyclate 150 mg PO DAILY 10/01/16 Amoxicillin/Potassium Clav [Augmentin 500-125 Tablet] 1 each PO BID #8 tablet Cyclobenzaprine HCl [Flexeril -] 10 mg PO TID 10/10/17 Ferrous Gluconate [Fergon -] 324 mg PO BID #90 tab 10/10/17 Meloxicam 15 mg PO BID 10/10/17 Potassium Citrate [Potassium Citrate ER] 15 meq PO BID 10/10/17 Tizanidine HCl [Zanaflex] 4 mg PO Q8H 10/10/17 This patient is new to me today: No Emergency Visit: Yes ED Registration Date: 10/07/17 Care time: The patient presented to the Emergency Department on the above date and was hospitalized for further evaluation of their emergent condition. Critical Care patient: No - Discharge Referral Referred to [facility] Med P.C.: No
== END 2017-10-10 15:18 | disposition home or self-care (01) | DRG 463 ==
LOC: JER 12:20 → JERBED 17:36 → J6S 20:52
PROVIDERS: ADMIT Internal Medicine; ATTEND Internal Medicine
PROC: 0T778DZ Dilation of Left Ureter with Intraluminal Device, Via Natural or Artificial Opening Endoscopic (ICD-10-PCS; principal; 2017-10-08 11:30)
DX: N13.6 Pyonephrosis (principal); I10 Essential (primary) hypertension; D64.9 Anemia, unspecified; F41.8 Other specified anxiety disorders; E78.00 Pure hypercholesterolemia, unspecified; Z96.651 Presence of right artificial knee joint; M54.89 Other dorsalgia; K76.9 Liver disease, unspecified; D25.9 Leiomyoma of uterus, unspecified; D49.0 Neoplasm of unspecified behavior of digestive system; K21.9 Gastro-esophageal reflux disease without esophagitis; R73.03 Prediabetes
CPT/HCPCS: 36415; 71020-TC; 74176; 76000-TC; 76775-TC; 80053; 81003; 81015; 82607; 82728; 82746; 83036; 83540; 83550; 83690; 83735; 84100; 85025; 85027; 85610; 85730; 86850; 86900; 86901; 87081; 87086; 87186; 93005; 93010; 94760; 97116-GP; 97161-GP; 99283-25; J1644

== ENCOUNTER 2018-01-15 12:52 | Emergency (ER) | payer OTHER ==
[2018-01-15 12:58] VITALS: TEMP 98.5; BMI 32.5
--- NOTE | 2018-01-15 17:00 | PDOC ---
History of Present Illness - General Chief Complaint: Pain Stated Complaint: ARM WEAKNESS (PCP SENT) Time Seen by Provider: 01/15/18 16:59 - History of Present Illness Initial Comments: 01/15/18 17:18 Ms. 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 She reports this is worse at night and that she has felt some weakness as well. She also reports that she forgot to take her blood pressure medicine today (metoprolol) but took some her partner's amlodipine in stead. The patient denies chest pain, shortness of breath, headache and dizziness. Denies fever, chills, nausea, vomit, diarrhea and constipation. Denies dysuria, frequency, urgency and hematuria. Allergies: NKDA Past History - Past Medical History Allergies/Adverse Reactions: Allergies Allergy/AdvReac Type Severity Reaction Status Date / Time No Known Allergies Allergy Verified 01/15/18 12:55 Home Medications: Ambulatory Orders Doxycycline Hyclate 150 mg PO DAILY 10/01/16 Hydrocodone/Acetaminophen [Hydrocodon-Acetaminophn 10-325] 1 each PO TID PRN 06/26 Metoprolol Succinate [Toprol Xl] 100 mg PO DAILY 01/15/18 Sulfamethoxazole/Trimethoprim [Bactrim Ds -] 1 tab PO BID #14 tablet 01/15/18 Anemia: Yes COPD: No Disorders: Yes (H/O STONES) HTN: Yes Hypercholesterolemia: Yes Kidney Stones: Yes Psychiatric Problems: Yes (ANXIETY) - Surgical History Orthopedic Surgery: Yes (RIGHT TKR) - Immunization History Immunization Up to Date: Yes - Suicide/Smoking/Psychosocial Hx Smoking Status: No Smoking History: Never smoked Have you smoked in the past 12 months: No Number of Cigarettes Smoked Daily: 0 Cigars Per Day: 0 Information on smoking cessation initiated: No Hx Alcohol Use: No Drug/Substance Use Hx: No Substance Use Type: None Review of Systems - Review of Systems Comments:: 01/15/18 17:27 GENERAL/CONSTITUTIONAL: No fever or chills. No weakness. HEAD, EYES, EARS, NOSE AND THROAT: No change in vision. No ear pain or discharge. No sore throat. CARDIOVASCULAR: No chest pain or shortness of breath RESPIRATORY: No cough, wheezing, or hemoptysis. GASTROINTESTINAL: No nausea, vomiting, diarrhea or constipation. GENITOURINARY: No dysuria, frequency, or change in urination. MUSCULOSKELETAL: +Sensation changes to hand as described with perceived weakness. No joint or muscle swelling or pain. No neck or back pain. SKIN: No rash NEUROLOGIC: No headache, vertigo, loss of consciousness, or change in strength/ sensation. ENDOCRINE: No increased thirst. No abnormal weight change HEMATOLOGIC/LYMPHATIC: No anemia, easy bleeding, or history of blood clots. ALLERGIC/IMMUNOLOGIC: No hives or skin allergy. *Physical Exam - Vital Signs Last Vital Signs Temp Pulse Resp BP Pulse Ox 98.5 F 85 18 163/99 100 01/15/18 12:55 01/15/18 12:55 01/15/18 12:55 01/15/18 12:55 01/15/18 12:55 - Physical Exam Comments: 01/15/18 17:28 GENERAL: Awake, alert, and fully oriented, in no acute distress HEAD: No signs of trauma, normocephalic, atraumatic EYES: PERRLA, EOMI, sclera anicteric, conjunctiva clear ENT: Auricles normal inspection, hearing grossly normal, nares patent, oropharynx clear without exudates. Moist mucosa NECK: Normal ROM, supple, no lymphadenopathy, JVD, or masses LUNGS: No distress, speaks full sentences, clear to auscultation bilaterally HEART: Regular rate and rhythm, normal S1 and S2, no murmurs, rubs or gallops, peripheral pulses normal and equal bilaterally. ABDOMEN: Soft, nontender, normoactive bowel sounds. No guarding, no rebound. No masses EXTREMITIES: +Sensation and strength intact. Normal inspection, Normal range of motion, no edema. No clubbing or cyanosis. NEUROLOGICAL: Cranial nerves II through XII grossly intact. Normal speech, normal gait, no focal sensorimotor deficits SKIN: Warm, Dry, normal turgor, no rashes or lesions noted. ED Treatment Course - LABORATORY CBC & Chemistry Diagram: 01/15/18 17:34 01/15/18 17:34 Medical Decision Making - Medical Decision Making 01/15/18 18:42 Ms. Dee is a 52 yo female w/ pmh as described who presents c/o parasthesias as described. Patient CBC/CMP grossly wnl as below. UA significant for 3+ leukocytes. Patient has UTI - Bactrim DS given in office w/ 1 week RX BID for further treatment. Will have follow-up with PCP for further evaluation. Patient verbalized understanding and agreement and will comply. Discharging to home. *DC/Admit/Observation/Transfer Diagnosis at time of Disposition: UTI (urinary tract infection) Qualifiers: Urinary tract infection type: site unspecified Hematuria presence: without hematuria Qualified Code(s): N39.0 - Urinary tract infection, site not specified - Discharge Dispostion Disposition: HOME - Prescriptions Prescriptions: Sulfamethoxazole/Trimethoprim [Bactrim Ds -] 1 tab PO BID #14 tablet - Referrals Referrals: Jahaira Garcia MD [Primary Care Provider] - - Patient Instructions Printed Discharge Instructions: DI for Urinary Tract Infection (UTI) Additional Instructions: You were evaluated today in the emergency room and found to have a UTI. A prescription has been sent to your pharmacy. Please take all antibiotics as proscribed. Follow-up with your primary care provider later this week for further evaluation. Return to ER if any increase in pain, fever, chills, or other concerning symptoms. - Post Discharge Activity
[2018-01-15] MEDS ORDERED: metoPROLOL SUCCINATE 25 MG TAB.SR.24H (FP) PO ONE (17:11)
[2018-01-15 17:38] VITALS: PULSE 72
[2018-01-15 17:43] LABS: BASO % 0.6 % (0-2.0); EOS % 2.2 % (0-4.5); HEMATOCRIT 39.6 % (32.4-45.2); HEMOGLOBIN 13.3 GM/dL (10.7-15.3); LYMPH % 23.4 % (8-40); MCH 27.8 pg (25.7-33.7); MCHC 33.5 g/dl (32.0-36.0); MEAN PLT VOLUME 7.6 fl (7.5-11.1); MONO % 6.9 % (3.8-10.2); NEUT % 66.9 % (42.8-82.8); PLATELET COUNT 263 K/MM3 (134-434); RBC 4.77 M/mm3 (3.60-5.2); RDW 16.9 % (11.6-15.6); WHITE BLOOD COUNT 5.7 K/mm3 (4.0-10.0)
[2018-01-15 17:50] LABS: URINE APPEARANCE SLCLOUDY; URINE BILIRUBIN NEGATIVE (<2.0 mg/dL); URINE BLOOD NEGATIVE (NEGATIVE); URINE COLOR LTYELLOW; URINE GLUCOSE (UA) NEGATIVE (NEGATIVE); URINE KETONE NEGATIVE (NEGATIVE); URINE NITRITE NEGATIVE (NEGATIVE); URINE PROTEIN NEGATIVE (NEGATIVE); URINE UROBILINOGEN NEGATIVE mg/dL (0.2-1.0)
[2018-01-15 17:58] LABS: URINE LEUK ESTERASE 3+ (NEGATIVE)
[2018-01-15 18:08] LABS: EPI CELLS FEW /HPF (FEW); URINE BACTERIA MANY /hpf (NONE SEEN); URINE HYALINE CAST 1 /lpf; YEAST FEW
[2018-01-15 18:15] LABS: ALBUMIN 3.7 g/dl (3.4-5.0); ALK PHOS 89 U/L (45-117); ANION GAP 4 (8-16); BILIRUBIN,TOTAL 0.2 mg/dL (0.2-1.0); BLOOD UREA NITROGEN 11 mg/dL (7-18); CALCIUM 8.5 mg/dL (8.5-10.1); CHLORIDE 108 mmol/L (98-107); CO2 29 mmol/L (21-32); CREATININE 0.9 mg/dL (0.55-1.02); GLUCOSE,RANDOM 90 mg/dL (74-106); POTASSIUM 3.6 mmol/L (3.5-5.1); SGOT/AST 14 U/L (15-37); SGPT/ALT 18 U/L (12-78); SODIUM 141 mmol/L (136-145); TOT PROT 7.5 g/dl (6.4-8.2)
[2018-01-15 18:40] VITALS: BP 138/92
[2018-01-15] MEDS ORDERED: SULFAMETHOXAZOLE/TRIMETHOPRIM 800MG/160MG D.S. TABLET PO ONE (18:40)
[2018-01-15] MEDS ORDERED: SULFAMETHOXAZOLE/TRIMETHOPRIM 800MG/160MG D.S. TABLET ONE ×2 (18:48→18:50)
== END 2018-01-15 19:14 | disposition home or self-care (01) ==
LOC: JER 12:52
DX: N39.0 Urinary tract infection, site not specified (principal); I10 Essential (primary) hypertension; E11.9 Type 2 diabetes mellitus without complications; Z87.442 Personal history of urinary calculi; M54.89 Other dorsalgia; G89.29 Other chronic pain; D25.9 Leiomyoma of uterus, unspecified
CPT/HCPCS: 36415; 80053; 81003; 81015; 85025; 99282-25

== ENCOUNTER 2018-08-07 05:09 | Day surgery (SDC) | payer OTHER ==
[2018-08-07] MEDS ORDERED: PROPOFOL 20 ML ONE ×2 (09:31)
[2018-08-07] MEDS ORDERED: MIDAZOLAM HCL 2 MG/2 ML SINGLE DOSE VIAL ONE (09:32)
[2018-08-07 09:45] VITALS: BMI 34.0
--- NOTE | 2018-08-07 10:09 | HP ---
History & Physical Update - Physical Physical: No Change - Assessment Assessment: No Change - Plan Plan: No Change (no changes)
--- NOTE | 2018-08-07 10:22 | HP ---
Past Medical History - Primary Care Physician PCP:: Wil Elizabeth - Admission Chief Complaint: menometrorrhagia, fibroid uterus, anemia History of Present Illness: 53 yo f with hx of irregular vaginal bleeding, pelvic pain , fibroid uterus, sono multiple myoma, irregular thicken EM.admitted for hysteroscopy D&C , polypectomy, possible resection of submucos myoma, rba to procedure has discussed with patient History Source: Patient Limitations to Obtaining History: No Limitations - Past Medical History Cardiovascular: Yes: HTN Gastrointestinal: Yes: GERD Renal/: Yes: Renal Calculi, UTI ...: 3 ...Para: 3 ...Term: 3 Additional OB History: 2 , one c/s Heme/Onc: Yes: Anemia - Past Surgical History Past Surgical History: Yes: , Joint Replacement Hx Myomectomy: No Hx Transabdominal Cerclage: No Additional Surgical History: rt knee replacement with MRSA infection post op on doxy - Smoking History Smoking history: Never smoked Have you smoked in the past 12 months: No Aproximately how many cigarettes per day: 0 - Alcohol/Substance Use Hx Alcohol Use: No - Social History History of Recent Travel: No Home Medications - Allergies Allergies/Adverse Reactions: Allergies Allergy/AdvReac Type Severity Reaction Status Date / Time No Known Allergies Allergy Verified 08/07/18 09:53 - Home Medications Home Medications: Ambulatory Orders Doxycycline Hyclate 150 mg PO DAILY 10/01/16 Hydrocodone/Acetaminophen [Hydrocodon-Acetaminophn 10-325] 1 each PO TID PRN 06/26 Metoprolol Succinate [Toprol Xl] 100 mg PO DAILY 01/15/18 Ibuprofen [Motrin -] 600 mg PO QID #28 tablet 08/07/18 Review of Systems - Review of Systems Constitutional: reports: No Symptoms Eyes: reports: No Symptoms HENT: reports: No Symptoms Neck: reports: No Symptoms Cardiovascular: reports: No Symptoms Respiratory: reports: No Symptoms Gastrointestinal: reports: No Symptoms Genitourinary: reports: Vaginal Bleeding Breasts: reports: No Symptoms Reported Musculoskeletal: reports: Back Pain, Extremity Pain Integumentary: reports: No Symptoms Neurological: reports: No Symptoms Endocrine: reports: No Symptoms Hematology/Lymphatic: reports: No Symptoms Psychiatric: reports: No Symptoms 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 Vital Signs: Vital Signs Temperature 98.1 F 08/07/18 09:53 Pulse Rate 66 08/07/18 09:53 Respiratory Rate 20 08/07/18 09:53 Blood Pressure 151/85 08/07/18 09:53 O2 Sat by Pulse Oximetry (%) 100 08/07/18 09:47 Constitutional: Yes: Well Nourished, No Distress, Calm, Obese Eyes: Yes: WNL, Conjunctiva Clear, EOM Intact HENT: Yes: WNL, Atraumatic, Normocephalic Neck: Yes: WNL, Supple, Trachea Midline Cardiovascular: Yes: WNL, Regular Rate and Rhythm Respiratory: Yes: WNL, Regular, CTA Bilaterally Gastrointestinal: Yes: WNL ...Rectal Exam: Yes: WNL Renal/: Yes: WNL Vaginal Exam: Yes: Normal Cervix: Yes: Normal Uterus: Yes: Enlarged, Firm, Lumpy Adnexa: Not Palpable: Left, Right Breast(s): Yes: WNL Musculoskeletal: Yes: WNL Extremities: Yes: WNL Integumentary: Yes: WNL Neurological: Yes: WNL, Alert, Oriented ...Motor Strength: WNL Psychiatric: Yes: WNL, Alert, Oriented Problem List - Problem (1) Menometrorrhagia Code(s): N92.1 - EXCESSIVE AND FREQUENT MENSTRUATION WITH IRREGULAR CYCLE (2) Fibroid uterus Code(s): D25.9 - LEIOMYOMA OF UTERUS, UNSPECIFIED Qualifiers: Uterine leiomyoma location: submucous and subserous Qualified Code(s): D25.0 - Submucous leiomyoma of uterus; D25.2 - Subserosal leiomyoma of uterus (3) Pelvic pain Code(s): R10.2 - PELVIC AND PERINEAL PAIN Assessment/Plan hysteroscopy, D&C , polypectomy, possible submucos myoma resection
[2018-08-07] MEDS ORDERED: ONDANSETRON 4 MG/2 ML VIAL IVPUSH PRN (10:40)
[2018-08-07] MEDS ORDERED: IBUPROFEN 800 MG/8 ML IJ IVPB PRN (10:40)
[2018-08-07] MEDS ORDERED: IBUPROFEN 600 MG TABLET (FP) PO PRN (10:40)
[2018-08-07] MEDS ORDERED: oxyCODONE HCL 5 MG TABLET PO PRN (10:40)
[2018-08-07] MEDS ORDERED: ELECTROLYTE-148 SOLN 1,000 ML IV SCH (10:45)
[2018-08-07 12:35] VITALS: PULSE 64
[2018-08-07] MEDS ORDERED: LACTATED RINGERS SOLUTION 1,000 ML IV SCH (13:00)
--- NOTE | 2018-08-07 13:52 | OP ---
DATE OF OPERATION: 08/07/2018 PREOPERATIVE DIAGNOSIS: Menometrorrhagia, fibroid uterus, thickened irregular endometrium. POSTOPERATIVE DIAGNOSIS: Menometrorrhagia, fibroid uterus, thickened irregular endometrium, submucous leiomyoma. SURGEON: Wil Eliazbeth MD ANESTHESIA: General. ESTIMATED BLOOD LOSS: 25 mL. OPERATION: The patient was taken to the operating room, and under adequate general anesthesia in dorsal lithotomy position, examination under anesthesia revealed external genitalia to be normal. Uterus was enlarged, irregular, approximately 16 weeks size. Adnexa, no masses were palpable. Then, with a weighted speculum in the vagina, anterior lip of the cervix was grasped with a single-tooth tenaculum. Then, uterine cavity was sounded to 9 cm. Then, cervix was slightly dilated. Then, Symphion Resectoscope was introduced, and then, there was resistance at the mid uterine length. Visualization of this area showed a myoma extending from the anterior attaching to the posterior wall of the uterus and forming a band-like area. Scope was introduced behind this area, and then both cornual regions were identified. The rest of the endometrium appeared to be normal, atrophic, no other abnormalities were seen. There were several floating polyps in the lower uterine segment, which first with the Symphion Resectoscope, these polyps were resected, and then, with the Symphion Resectoscope, the submucous myoma was resected in its entirety, and then, after resection of the myoma, you could see the cavity in its entirety without any other abnormality. Patient tolerated the procedure well, left the OR in good condition. WIL ELIZABETH M.D. [id number]
[2018-08-07 17:47] VITALS: BP 143/87; TEMP 97.8
--- NOTE | 2018-08-09 17:31 | PATH ---
Surgical Pathology Report Patient Name: LATRICE LIVE [facility]. Rec. #: [id number] /Age/Gender: 1965 (Age: 53) / F Account: [id number] Location: [facility] Taken: 08/07/2018 Received: 08/07/2018 Reported: 08/09/2018 Physicians: Wil Elizabeth M.D. Specimen(s) Received A: FIBROID AND POLYP B: ENDOMETRIAL CURETTINGS Clinical History Fibroids of uterus, menorrhagia Final Diagnosis A. UTERUS, POLYP, FIBROUS TISSUE, POLYPECTOMY: FRAGMENTS OF ENDOMETRIAL POLYP AND ENDOCERVIX WITH MICROGLANDULAR HYPERPLASIA. B. ENDOMETRIAL CURETTINGS, DILATION AND CURETTAGE: POLYPOID FRAGMENTS OF ENDOCERVICAL MUCOSA AND BENIGN ECTOCERVICAL SQUAMOUS MUCOSA. Electronically Signed Karlie Lucas M.D. Gross Description A. Received in formalin labeled "polyp, fibrous tissue," is a 1 g, 3.5 x 2.2 x 0.3 cm aggregate of fraga soft tissue fragments. The specimen is entirely submitted in one cassette. B. Received in formalin labeled "endometrial curettings," is a 2.5 x 2.0 x 0.3 cm aggregate of fraga-red soft tissue fragments admixed with blood tinged mucous. The formalin is filtered and the specimen is entirely submitted in one cassette. /08/07/2018
== END 2018-08-07 13:30 | disposition home or self-care (01) ==
LOC: JASU-SURG 05:09
PROVIDERS: ATTEND Obstetrics & Gynecology
PROC: 0UJD8ZZ Inspection of Uterus and Cervix, Via Natural or Artificial Opening Endoscopic (ICD-10-PCS; 2018-08-07)
PROC: 0UB98ZZ Excision of Uterus, Via Natural or Artificial Opening Endoscopic (ICD-10-PCS; principal; 2018-08-07 10:00)
PROC: 0UDB7ZX Extraction of Endometrium, Via Natural or Artificial Opening, Diagnostic (ICD-10-PCS; 2018-08-07 10:00)
DX: N92.0 Excessive and frequent menstruation with regular cycle (principal); N85.00 Endometrial hyperplasia, unspecified; D25.0 Submucous leiomyoma of uterus
CPT/HCPCS: 84703; 94760

== ENCOUNTER 2019-03-15 13:15 | Emergency (ER) | payer OTHER | END 2019-03-15 14:05 | disposition home or self-care (01) | LOC: FER 13:15 ==

== ENCOUNTER 2021-01-26 04:21 | Day surgery (SDC) | payer OTHER ==
[2021-01-25 11:31] VITALS: BMI 32.5
[2021-01-26] MEDS ORDERED: MIDAZOLAM HCL 2 MG/2 ML SINGLE DOSE VIAL ONE (09:26)
[2021-01-26] MEDS ORDERED: KETOROLAC TROMETHAMINE 30 MG/1 ML VIAL ONE (09:45)
[2021-01-26] MEDS ORDERED: ONDANSETRON 4 MG/2 ML VIAL ONE (09:45)
[2021-01-26] MEDS ORDERED: LIDOCAINE HCL/PF 2% SDV 5ML VIAL ONE (09:45)
[2021-01-26] MEDS ORDERED: EPHEDRINE SULFATE/0.9% NACL/PF 50 MG/10 ML SYRINGE NR ONE (09:51)
[2021-01-26] MEDS ORDERED: IBUPROFEN 800 MG/8 ML IJ IVPB PRN (10:05)
[2021-01-26] MEDS ORDERED: IBUPROFEN 600 MG TABLET (FP) PO PRN (10:05)
[2021-01-26] MEDS ORDERED: ONDANSETRON 4 MG/2 ML VIAL IVPUSH PRN ×2 (10:05→10:23)
[2021-01-26] MEDS ORDERED: oxyCODONE HCL 5 MG TABLET PO PRN (10:05)
[2021-01-26] MEDS ORDERED: ELECTROLYTE-148 SOLN 1,000 ML IV SCH (10:15)
[2021-01-26] MEDS ORDERED: ACETAMINOPHEN 500 MG TABLET (FP) PO PRN (10:23)
[2021-01-26 16:20] VITALS: PULSE 74
[2021-01-26 16:30] VITALS: BP 121/74; TEMP 98.2
== END 2021-01-26 13:45 | disposition home or self-care (01) ==
LOC: JASU-SURG 04:21
PROVIDERS: ATTEND Obstetrics & Gynecology
PROC: 0UDB7ZX Extraction of Endometrium, Via Natural or Artificial Opening, Diagnostic (ICD-10-PCS; 2021-01-26)
PROC: 0UJ Female Reproductive System, Inspection (ICD-10-PCS; 2021-01-26)
PROC: 0UB98ZZ Excision of Uterus, Via Natural or Artificial Opening Endoscopic (ICD-10-PCS; principal; 2021-01-26 09:00)
PROC: 0UB97ZX Excision of Uterus, Via Natural or Artificial Opening, Diagnostic (ICD-10-PCS; 2021-01-26 09:00)
DX: D25.0 Submucous leiomyoma of uterus (principal); N84.0 Polyp of corpus uteri; E11.9 Type 2 diabetes mellitus without complications
CPT/HCPCS: 81025; 82962; 88305-TC; 94760

== ENCOUNTER 2023-06-18 14:08 | Observation (INO) | payer OTHER ==
[2023-06-18 14:12] VITALS: BMI 31.3
[2023-06-18] MEDS ORDERED: ACETAMINOPHEN 500 MG TABLET (FP) PO ONE (15:07)
[2023-06-18] MEDS ORDERED: ACETAMINOPHEN 325 MG TABLET (FP) ONE (15:25)
[2023-06-18 16:06] LABS: BASO % 0.4 % (0-2.0); HEMATOCRIT 41.1 % (32.4-45.2); HEMOGLOBIN 13.8 GM/dL (10.7-15.3); LYMPH % 20.3 % (8-40); MCHC 33.7 g/dl (32.0-36.0); MEAN CELL VOLUME 80.2 fl (80-96); MEAN PLT VOLUME 7.8 fl (7.5-11.1); MONO % 7.6 % (3.8-10.2); NEUT % 67.7 % (42.8-82.8); PLATELET COUNT 309 10^3/uL (134-434); RBC 5.13 M/mm3 (3.60-5.2); RDW 14.3 % (11.6-15.6)
[2023-06-18 16:15] LABS: INR 1.09 (0.83-1.09); PROTHROMBIN TIME (PATIENT) 12.6 SEC (9.7-13.0)
[2023-06-18 16:17] LABS: ACTIVATED PTT 34.3 SECONDS (25.2-36.5)
[2023-06-18 16:29] LABS: POTASSIUM 4.9 mmol/L (3.5-5.1)
[2023-06-18 16:31] LABS: CALCIUM 9.2 mg/dL (8.5-10.1)
[2023-06-18 16:32] LABS: ALBUMIN 3.8 g/dl (3.4-5.0); BLOOD UREA NITROGEN 14.9 mg/dL (7-18)
[2023-06-18 16:35] LABS: CREATININE 1.2 mg/dL (0.55-1.3)
[2023-06-18 16:36] LABS: BILIRUBIN,TOTAL 0.6 mg/dL (0.2-1)
[2023-06-18 16:37] LABS: TOT PROT 7.8 g/dl (6.4-8.2)
[2023-06-18] MEDS ORDERED: KETOROLAC TROMETHAMINE 15 MG/ML VIAL IVPUSH ONE (21:35)
[2023-06-18] MEDS ORDERED: KETOROLAC TROMETHAMINE 15 MG/ML VIAL ONE (21:49)
[2023-06-18 22:08] VITALS: BP 139/88; PULSE 67; RESP 17; TEMP 97.2
== END 2023-06-18 22:26 | disposition home or self-care (01) ==
LOC: JER 14:08 → JERBED 19:43
PROVIDERS: ADMIT Internal Medicine; ATTEND Internal Medicine
PROC: 3E0333Z Introduction of Anti-inflammatory into Peripheral Vein, Percutaneous Approach (ICD-10-PCS; principal; 2023-06-18)
DX: R07.9 Chest pain, unspecified (principal); E11.9 Type 2 diabetes mellitus without complications; E78.5 Hyperlipidemia, unspecified; I10 Essential (primary) hypertension; F41.9 Anxiety disorder, unspecified
CPT/HCPCS: 36415; 71046-TC-FY; 80053; 83690; 84484; 85025; 85610; 85730; 93005; 93010; 96374; 99285-25; G0378

== ENCOUNTER 2023-06-21 19:22 | Emergency (ER) | payer OTHER ==
[2023-06-21 19:31] VITALS: BP 143/89; PULSE 85; RESP 19; TEMP 98.6; BMI 30.4
[2023-06-21] MEDS ORDERED: LIDOCAINE 4% PATCH TP ONE (20:33)
[2023-06-21] MEDS ORDERED: diazePAM 5 MG TABLET PO ONE (20:34)
[2023-06-21] MEDS ORDERED: KETOROLAC TROMETHAMINE 60 MG/2 ML VIAL IM ONE (20:34)
[2023-06-21] MEDS ORDERED: diazePAM 5 MG TABLET ONE (20:40)
[2023-06-21] MEDS ORDERED: KETOROLAC TROMETHAMINE 60 MG/2 ML VIAL ONE (20:40)
[2023-06-21] MEDS ORDERED: LIDOCAINE 5% TOPICAL PATCH ONE (20:41)
[2023-06-21] MEDS ORDERED: LIDOCAINE PATCH REMOVAL MC ONE (22:00)
== END 2023-06-21 22:49 | disposition home or self-care (01) ==
LOC: FER 19:22
PROC: 3E0233Z Introduction of Anti-inflammatory into Muscle, Percutaneous Approach (ICD-10-PCS; principal; 2023-06-21)
DX: M54.50 Low back pain, unspecified (principal); G89.29 Other chronic pain
CPT/HCPCS: 99284-25

== ENCOUNTER 2024-09-07 18:59 | Emergency (ER) | payer OTHER ==
[2024-09-07 19:07] VITALS: BP 140/90; PULSE 106; RESP 18; TEMP 97.8; BMI 31.3
[2024-09-07] MEDS ORDERED: ACETAMINOPHEN 500 MG TABLET (FP) ONE (21:00)
[2024-09-07] MEDS: ACETAMINOPHEN 500 MG TABLET (FP) PO ONE (21:03)
[2024-09-07] MEDS ORDERED: KETOROLAC TROMETHAMINE 30 MG/1 ML VIAL ONE (22:39)
[2024-09-07] MEDS ORDERED: LIDOCAINE 5% TOPICAL PATCH ONE (22:40)
[2024-09-07] MEDS: LIDOCAINE 5% TOPICAL PATCH TP ONE (22:49)
[2024-09-07] MEDS: KETOROLAC TROMETHAMINE 30 MG/1 ML VIAL IM ONE (22:49)
[2024-09-07] MEDS: oxyCODONE HCL 5 MG TABLET PO ONE (23:01)
== END 2024-09-08 00:08 | disposition left against medical advice (07) ==
LOC: JER 18:59 → JERFT 18:59 → JER 09-08 00:08
DX: S00.83XA Contusion of other part of head, initial encounter (principal); M25.561 Pain in right knee; M54.50 Low back pain, unspecified; M54.6 Pain in thoracic spine; Y04.0XXA Assault by unarmed brawl or fight, initial encounter
CPT/HCPCS: 70486-TC; 72070-TC-FY; 72100-TC-FY; 73560-TC-RT-FY; 99284-25

== ENCOUNTER 2025-02-21 15:43 | Emergency (ER) | payer OTHER ==
[2025-02-21 15:53] VITALS: TEMP 98.2; BMI 33.4
[2025-02-21 17:11] LABS: ABSOLUTE IMMATURE GRANULOCYTES 0.04 x10^3/uL (0.0-0.031); BASOPHILS # 0.02 x10^3/uL (0.01-0.08); EOSINOPHIL % 0.8 % (0.7-5.8); EOSINOPHILS # 0.06 x10^3/uL (0.04-0.36); HEMATOCRIT 40.6 % (34.1-44.9); HEMOGLOBIN 13.2 g/dL (11.2-15.7); MCHC 32.5 g/dl (32.2-35.5); MEAN CELL VOLUME 82.2 fl (79.4-94.8); MEAN PLT VOLUME 9.7 fl (9.4-12.3); MONOCYTE % 6.8 % (4.7-12.5); PLATELET COUNT 278 x10^3/uL (182-369); RDW 13.3 % (12.3-16.6)
[2025-02-21 17:16] LABS: PH,URINE 5.5 (5.0-8.0); URINE APPEARANCE Error; URINE BILIRUBIN NEGATIVE (NEGATIVE); URINE COLOR YELLOW; URINE GLUCOSE (UA) NEGATIVE (NEGATIVE); URINE KETONE NEGATIVE (NEGATIVE); URINE LEUK ESTERASE NEGATIVE (NEGATIVE); URINE NITRITE NEGATIVE (NEGATIVE); URINE PROTEIN NEGATIVE (NEGATIVE)
[2025-02-21 17:29] LABS: POTASSIUM 4.3 mmol/L (3.5-5.1)
[2025-02-21 17:31] LABS: ALBUMIN 3.9 g/dl (3.4-5.0); BLOOD UREA NITROGEN 19.2 mg/dL (7-18); CALCIUM 9.4 mg/dL (8.5-10.1)
[2025-02-21 17:35] LABS: CREATININE 1.3 mg/dL (0.55-1.3)
[2025-02-21 17:36] LABS: BILIRUBIN,TOTAL 0.7 mg/dL (0.2-1); TOT PROT 7.4 g/dl (6.4-8.2)
[2025-02-21 17:55] VITALS: BP 144/76; PULSE 70; RESP 15
[2025-02-21 18:25] LABS: HCV DIAGNOSTIC IN-HOUSE W/RFLX NON-REACTIVE (NONREACTIVE)
[2025-02-21 18:26] LABS: HIV INTERPRETATION NEGATIVE (NEGATIVE)
== END 2025-02-21 18:09 | disposition home or self-care (01) ==
LOC: JER 15:43
DX: R42 Dizziness and giddiness (principal); T38.3X5A Adverse effect of insulin and oral hypoglycemic [antidiabetic] drugs, initial encounter
CPT/HCPCS: 36415; 80053; 81003; 84484; 85025; 86803; 87389; 93005; 93010; 99284-25

== ENCOUNTER 2025-02-27 10:58 | Emergency (ER) | payer OTHER ==
[2025-02-27 11:35] VITALS: BP 144/98; PULSE 87; RESP 18; TEMP 97.8; BMI 29.5
[2025-02-27] MEDS ORDERED: ACETAMINOPHEN 500 MG TABLET (FP) ONE (11:56)
[2025-02-27] MEDS ORDERED: IBUPROFEN 600 MG TABLET (FP) PO ONE (11:56)
[2025-02-27] MEDS: IBUPROFEN 600 MG TABLET (FP) PO ONE (11:58)
[2025-02-27] MEDS: ACETAMINOPHEN 500 MG TABLET (FP) PO ONE (11:59)
== END 2025-02-27 12:19 | disposition home or self-care (01) ==
LOC: JERFT 10:58
DX: M54.50 Low back pain, unspecified (principal); G89.29 Other chronic pain; V43.52XA Car driver injured in collision with other type car in traffic accident, initial encounter; Y92.410 Unspecified street and highway as the place of occurrence of the external cause
CPT/HCPCS: 72100-TC-FY; 99283-25